=== PATIENT | female | born 1945 | race Caucasian/White ===

== ENCOUNTER → 2017-01-12 | Outpatient (CLI) | payer MEDICARE, OTHER ==
[~2017-01-12] MED LIST: AMOX500C2 PO; ATR20T; CARB200T6 PO; CEPH500C; HYDR-2997 PO; HYDR1TAB PO; LEVO750T6 PO; LORA0.5T34; METR500T PO; MTF500T; ROSI2TAB11; SITA1TAB6; VLS80C; ZLP10T
--- NOTE | 2017-01-12 13:16 | Diagnostic Imaging Report ---
PROCEDURE: MRI lumbar spine. TECHNIQUE: Multiplanar, multisequence MRI of the lumbar spine was performed without contrast. INDICATION: Lower back pain. COMPARISON: None. FINDINGS: For the purposes of this exam, last well-formed disc space is denoted the L5-S1 level. Evaluation of the static alignment demonstrates trace grade 1 anterolisthesis of L4 on L5. Otherwise, static alignment is maintained. There is no evidence of jumped facets. Vertebral body heights are maintained. There is no evidence of acute fracture. Marrow signal is unremarkable. There are mild multilevel degenerative changes consisting of intervertebral disc height loss with anterior and posterior disc bulges. Visualized portions of the distal cord are unremarkable. Conus terminates at approximately the L1-L2 level. No abnormal intrathecal filling defects are seen. Pre- and para-vertebral soft tissue structures are unremarkable. Axial images demonstrate the following: T12-L1: There is mild broad-based posterior disc bulge with focal left paracentric superimposed disc protrusion. As a result, there is mild narrowing of the spinal canal. Neural foramina are unremarkable. L1-L2: There is broad-based posterior disc bulge which results in mild narrowing of the spinal canal. Neural foramina are unremarkable. L2-L3: There is mild broad-based posterior disc bulge and bilateral ligamentum flavum laxity. There is minimal narrowing of the spinal canal and bilateral neural foramina. L3-L4: There is mild broad-based posterior disc bulge and bilateral ligamentum flavum laxity and facet arthropathy. As a result, there is moderate narrowing of the spinal canal and mild narrowing of the bilateral neural foramina. L4-L5: There is mild broad-based posterior disc bulge with bilateral facet arthropathy and ligamentum flavum laxity. As a result, there is mild narrowing of the spinal canal and bilateral neural foramina. L5-S1: There is broad-based posterior disc bulge. There is also focal extrusion of disc material extending superiorly posterior to the L5 vertebral body, midline. Despite this, however, there is only minimal narrowing of the spinal canal and mild narrowing of the bilateral neural foramina. IMPRESSION: 1. Multilevel degenerative changes of the lumbar spine, which appear greatest at the L3-L4 through L5-S1 levels as described above. 2. No acute fracture or dislocation. Dictated by: Dictated on workstation # [id number]
== END ==
LOC: RAD 11:32
PROVIDERS: ATTEND Internal Medicine
DX: M54.5 Low back pain (principal); M51.37 Other intervertebral disc degeneration, lumbosacral region
CPT/HCPCS: 72148

== ENCOUNTER 2017-03-06 06:47 | Emergency (ER) | payer MEDICARE, OTHER ==
[~2017-03-06] VITALS: Ht 154.9 cm; Wt 74.8 kg
[2017-03-06 07:45] LABS: BASOPHILS % (AUTO) 0 % (0-10); EOSINOPHILS # (AUTO) 0.2 10^3/uL (0.0-0.3); EOSINOPHILS % (AUTO) 4 % (0-10); LYMPHOCYTES % (AUTO) 52 % (12-44); MEAN CORPUSCULAR HEMOGLOBIN 30 PG (25-34); MEAN CORPUSCULAR HGB CONC 34 G/DL (32-36); MEAN CORPUSCULAR VOLUME 88 FL (80-99); MEAN PLATELET VOLUME 9.9 FL (7.4-10.4); MONOCYTES # (AUTO) 0.4 X 10^3 (0.0-1.0); MONOCYTES % (AUTO) 7 % (0-12); NEUTROPHILS # (AUTO) 2.2 X 10^3 (1.8-7.8); NEUTROPHILS % (AUTO) 37 % (42-75); PLATELET COUNT 226 10^3/uL (130-400); RED BLOOD COUNT 4.56 10^6/uL (4.35-5.85); RED CELL DISTRIBUTION WIDTH 12.2 % (10.0-14.5); WHITE BLOOD COUNT 5.8 10^3/uL (4.3-11.0)
[2017-03-06 07:53] LABS: BILIRUBIN,URINE NEGATIVE (NEGATIVE); KETONES,URINE NEGATIVE (NEGATIVE); NITRITE,URINE NEGATIVE (NEGATIVE); PH,URINE 6 (5-9); PROTEIN,URINE NEGATIVE (NEGATIVE); UROBILINOGEN,URINE NORMAL (NORMAL)
[2017-03-06 07:54] LABS: LEUKOCYTE ESTERASE ,URINE 1+ (NEGATIVE); WBC,URINE 0-2 /HPF
--- NOTE | 2017-03-06 07:55 | ED General ---
General Chief Complaint: Dizziness/Syncope Stated Complaint: DIZZY HEAD CONGESTION Nursing Triage Note: PT REPORTS SHE WOKE UP THIS AM WITH DIZZINESS AND REPORTS "MY EQUILIBRIUM IS OFF." Nursing Sepsis Screen: No Definite Risk Source of Information: Patient History of Present Illness Time Seen by Provider: 07:46 Initial Comments The patient is a 71-year-old white female who presents with complaints of dizziness and loss of balance. She reports that she awakened this morning with these symptoms. The she reports that it seems somewhat worse when she turns her head. She states that she had difficulty making it to the bathroom. She then decided to smile into the mirror to determine whether she might be having a stroke. She was observed to walk from her ER room to the bathroom and appeared unsteady and clinging to the handrail. Timing/Duration: 1-3 Hours Associated Systoms: Denies Symptoms Allergies and Home Medications Allergies Coded Allergies: Meperidine (Verified Allergy, Unknown, 07/25/06) Home Medications Amoxicillin 500 Mg Capsule, 1 EACH PO BID for 10 Days, Ref 0 Prescribed by: MILANA CALI MD on 08/29/0949 Carbamazepine 200 Mg Tablet, 200 MG PO BID, #30 Ref 0 Prescribed by: MILANA CALI MD on 08/29/0949 Cephalexin Monohydrate 500 Mg Capsule, (Reported) Hydrocodone Bit/Acetaminophen 1 Tab Tablet, 1 EACH PO Q 4 - 6 HRS PRN, #14 Ref 0 Prescribed by: MILANA CALI MD on 08/29/0949 Hydrocodone Bit/Acetaminophen 1 Each Tablet, 1-2 EACH PO Q4HR PRN, #12 Prescribed by: MADHAV GALDAMEZ on 01/27/132324 Levofloxacin 750 Mg Tablet, 750 MG PO DAILY for 7 Days Prescribed by: MADHAV GALDAMEZ on 01/27/135 Lorazepam 0.5 Mg Tablet, (Reported) Metformin Hcl 500 Mg Tablet, (Reported) Metformin Hcl 500 Mg Tablet, (Reported) Metronidazole 500 Mg Tab, 1 EACH PO QID for 7 Days Prescribed by: MADHAV GALDAMEZ on 01/27/132324 Sitagliptin Phos/Metformin Hcl 1 Each Tablet, (Reported) Valsartan 80 Mg Tablet, (Reported) Zolpidem Tartrate 10 Mg Tablet, (Reported) Constitutional: see HPI EENTM: no symptoms reported Respiratory: no symptoms reported Cardiovascular: no symptoms reported Gastrointestinal: no symptoms reported Genitourinary: no symptoms reported Musculoskeletal: no symptoms reported Skin: no symptoms reported Psychiatric/Neurological: No Symptoms Reported Hematologic/Lymphatic: No Symptoms Reported Immunological/Allergic: no symptoms reported Past Oitlwsg-Uhgpjq-Fajglu Hx Patient Social History Alcohol Use: Denies Use Recreational Drug Use: No Smoking Status: Former Smoker Type Used: Cigarettes 2nd Hand Smoke Exposure: No Recent Foreign Travel: No Contact w/Someone Who Travel: No Recent Infectious Disease Expo: No Surgeries HX Surgeries: Yes (CHOELECYSTECTOMY, HYSTERECTOMY) Respiratory Hx Respiratory Disorders: No Cardiovascular Cardiac Disorders: Hypertension Neurological Hx Neurological Disorders: No 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 Genitourinary Hx Genitourinary Disorders: No Gastrointestinal Gastrointestinal Disorders: Gastroesophageal Reflux Endocrine Endocrine Disorders: Diabetes, Non-Insulin dep HEENT HX ENT Disorders: No Blood Transfusions Hx Blood Disorders: No Physical Exam Vital Signs Vital Sign - Last 12Hours 03/06/17 07:11 Temp 96.5 Pulse 84 Resp 18 B/P (MAP) 185/93 Pulse Ox 97 Capillary Refill : Less Than 3 Seconds General Appearance: Mild Distress Eyes: Bilateral Eye Other (bilateral horizontal nystagmus) HEENT: Normal ENT Inspection Neck: Normal Inspection Respiratory: Chest Non Tender, Lungs Clear, Normal Breath Sounds, No Accessory Muscle Use, No Respiratory Distress Cardiovascular: Regular Rate, Rhythm, No Edema, No Gallop, No JVD, No Murmur, Normal Peripheral Pulses Gastrointestinal: Normal Bowel Sounds, No Organomegaly, No Pulsatile Mass, Non Tender, Soft Back: Normal Inspection, No CVA Tenderness, No Vertebral Tenderness Extremity: Normal Capillary Refill, Normal Inspection, Normal Range of Motion, Non Tender, No Calf Tenderness, No Pedal Edema Neurologic/Psychiatric: Alert, Oriented x3, No Motor/Sensory Deficits, Normal Mood/Affect Skin: Normal Color, Warm/Dry Lymphatic: No Adenopathy Comments Finger to examiner's finger and finger to nose were normal. Rapid alternating finger to thumb movements were normal as well. Progress/Results/Core Measures Results/Orders Lab Results Laboratory Tests Test 03/06/17 07:35 Range/Units White Blood Count 5.8 4.3-11.0 10^3/uL Red Blood Count 4.56 4.35-5.85 10^6/uL Hemoglobin 13.6 11.5-16.0 G/DL Hematocrit 40 35-52 % Mean Corpuscular Volume 88 80-99 FL Mean Corpuscular Hemoglobin 30 25-34 PG Mean Corpuscular Hemoglobin Concent 34 32-36 G/DL Red Cell Distribution Width 12.2 10.0-14.5 % Platelet Count 226 130-400 10^3/uL Mean Platelet Volume 9.9 7.4-10.4 FL Neutrophils (%) (Auto) 37 L 42-75 % Lymphocytes (%) (Auto) 52 H 12-44 % Monocytes (%) (Auto) 7 0-12 % Eosinophils (%) (Auto) 4 0-10 % Basophils (%) (Auto) 0 0-10 % Neutrophils # (Auto) 2.2 1.8-7.8 X 10^3 Lymphocytes # (Auto) 3.0 1.0-4.0 X 10^3 Monocytes # (Auto) 0.4 0.0-1.0 X 10^3 Eosinophils # (Auto) 0.2 0.0-0.3 10^3/uL Basophils # (Auto) 0.0 0.0-0.1 10^3/uL Urine Color YELLOW Urine Clarity CLEAR Urine pH 6 5-9 Urine Specific [place] 1.015 L 1.016-1.022 Urine Protein NEGATIVE NEGATIVE Urine Glucose (UA) NEGATIVE NEGATIVE Urine Ketones NEGATIVE NEGATIVE Urine Nitrite NEGATIVE NEGATIVE Urine Bilirubin NEGATIVE NEGATIVE Urine Urobilinogen NORMAL NORMAL MG/DL Urine Leukocyte Esterase 1+ H NEGATIVE Urine RBC (Auto) NEGATIVE NEGATIVE Urine RBC NONE /HPF Urine WBC 0-2 /HPF Urine Squamous Epithelial Cells 10-25 H /HPF Urine Crystals NONE /LPF Urine Bacteria MODERATE H /HPF Urine Casts NONE /LPF Urine Mucus NEGATIVE /LPF Urine Culture Indicated NO Sodium Level 138 135-145 MMOL/L Potassium Level 3.8 3.6-5.0 MMOL/L Chloride Level 104 98-107 MMOL/L Carbon Dioxide Level 20 L 21-32 MMOL/L Anion Gap 14 5-14 MMOL/L Blood Urea Nitrogen 17 7-18 MG/DL Creatinine 0.98 0.60-1.30 MG/DL Estimat Glomerular Filtration Rate 56 BUN/Creatinine Ratio 17 Glucose Level 154 H 70-105 MG/DL Calcium Level 9.3 8.5-10.1 MG/DL Total Bilirubin 0.4 0.1-1.0 MG/DL Aspartate Amino Transf (AST/SGOT) 47 H 5-34 U/L Alanine Aminotransferase (ALT/SGPT) 60 H 0-55 U/L Alkaline Phosphatase 71 40-136 U/L Total Protein 6.8 6.4-8.2 GM/DL Albumin 4.1 3.2-4.5 GM/DL My Orders Orders - PAMELA BERG MD Cbc With Automated Diff (03/06/17 07:15) Comprehensive Metabolic Panel (03/06/17 07:15) Ua Culture If Indicated (03/06/17 07:15) Meclizine Tablet (Antivert Tablet) (03/06/17 08:15) Medications Given in ED Current Medications Medications Dose Ordered Sig/Yusuf Route Start Time Stop Time Status Last Admin Dose Admin Meclizine HCl 25 mg ONCE ONCE PO 03/06/17 08:15 03/06/17 08:17 DC 03/06/17 08:19 25 MG Vital Signs/I&O Vital Sign - Last 12Hours 03/06/17 07:11 Temp 96.5 Pulse 84 Resp 18 B/P (MAP) 185/93 Pulse Ox 97 Blood Pressure Mean: 123 Departure Impression Impression: Primary Impression: Vertigo Disposition: 01 HOME, SELF-CARE Condition: Stable/Unchanged Departure-Patient Inst. Decision time for Depature: 08:32 Referrals: ALVERTO COHEN DO (PCP/Family) Primary Care Physician Patient Instructions: Vertigo (a Type of Dizziness) (DC) Add. Discharge Instructions: All discharge instructions reviewed with patient and/or family. Voiced understanding. Take meclizine 25 mg 3-4 times daily for the next 3 days. It may cause you to feel drowsy. If vertigo is resolved you may reduce the number of pills by one daily until you reach 0. If further problems see your provider Scripts Meclizine HCl (Meclizine HCl) 25 Mg Tablet 25 MG PO 4 times a day, #20 TAB Prov: PAMELA BERG MD 03/06/17 PAMELA BERG MD Mar 06, 2017 07:55
[2017-03-06 08:03] LABS: ALBUMIN 4.1 GM/DL (3.2-4.5); BILIRUBIN,TOTAL 0.4 MG/DL (0.1-1.0); CALCIUM 9.3 MG/DL (8.5-10.1); CREATININE SERUM 0.98 MG/DL (0.60-1.30); POTASSIUM 3.8 MMOL/L (3.6-5.0); TOTAL PROTEIN 6.8 GM/DL (6.4-8.2)
[2017-03-06] MEDS ORDERED: MECLIZINE 25 MG (ANTIVERT) TAB PO ONE (08:15)
[2017-03-06] MEDS ORDERED: MECL-106 PO (08:35)
[2017-03-06 09:18] VITALS: BP 179/80
== END 2017-03-06 09:18 | disposition home or self-care (01) ==
LOC: EDUNIT# 06:47 → ER 06:50
DX: R42 Dizziness and giddiness (principal); E11.9 Type 2 diabetes mellitus without complications; K21.9 Gastro-esophageal reflux disease without esophagitis; I10 Essential (primary) hypertension; Z87.891 Personal history of nicotine dependence; Z90.710 Acquired absence of both cervix and uterus; Z90.49 Acquired absence of other specified parts of digestive tract; Z79.84 Long term (current) use of oral hypoglycemic drugs
CPT/HCPCS: 36415; 80053; 81000; 85025; 99283

== ENCOUNTER 2018-01-12 19:29 | Emergency (ER) | payer MEDICARE, OTHER ==
[~2018-01-12] VITALS: Ht 154.9 cm; Wt 79.4 kg
[~2018-01-12 19:29] MED LIST changes: +MECL-106 PO
--- OUTSIDE RECORDS SUMMARY | 2018-01-12 19:36 | XMS REPORT | Continuity of Care Document ---
Author Author [facility] Organization [facility] Address Unknown Phone Unavailable Allergies Active Description Code Type Severity Reaction Onset Reported/Identified Relationship to Patient Clinical Status Yes meperidine [id number] Drug Allergy Unknown N/A 07/25/2006 Medications There is no data. Problems Date Dx Coded Attending Type Code Diagnosis Diagnosed By 01/27/2013 MADHAV GALDAMEZ MD Ot 562.11 DIVERTICULITIS COLON (W/O MENT OF HEMORR 01/27/2013 MADHAV GALDAMEZ MD Ot 789.00 ABDOMINAL PAIN, UNSPECIFIED SITE 01/11/2015 MARIA ELENA COHEN METAL WORKER Ot V76.12 02/06/2015 MARIA ELENA COHEN METAL WORKER Ot 240.9 02/06/2015 MARIA ELENA COHEN METAL WORKER Ot 250.00 02/06/2015 MARIA ELENA COHEN METAL WORKER Ot 780.79 02/06/2015 MARIA ELENA COHEN METAL WORKER Ot V58.69 02/25/2015 MARIA ELENA COHEN METAL WORKER Ot 240.9 02/25/2015 MARIA ELENA COHEN METAL WORKER Ot 250.00 02/25/2015 MARIA ELENA COHEN METAL WORKER Ot 780.79 02/25/2015 MARIA ELENA COHEN METAL WORKER Ot V58.69 07/13/2016 ALVERTO COHEN DO Ot Z12.31 ENCNTR SCREEN MAMMOGRAM FOR MALIGNANT NE 07/14/2016 ALVERTO COHEN DO Ot Z12.31 ENCNTR SCREEN MAMMOGRAM FOR MALIGNANT NE 08/03/2016 ALVERTO COHEN DO Ot Z12.31 ENCNTR SCREEN MAMMOGRAM FOR MALIGNANT NE 01/14/2017 ALVERTO COHEN DO Ot M51.37 OTHER INTERVERTEBRAL DISC DEGENERATION, 01/14/2017 ALVERTO COHEN DO Ot M54.5 LOW BACK PAIN 02/01/2017 ALVERTO COHEN DO, Ot M51.37 OTHER INTERVERTEBRAL DISC DEGENERATION, 02/01/2017 ALVERTO COHEN DO Ot M54.5 LOW BACK PAIN 03/06/2017 PAMELA BERG MD Ot E11.9 TYPE 2 DIABETES MELLITUS WITHOUT COMPLIC 03/06/2017 PAMELA BERG MD Ot I10 ESSENTIAL (PRIMARY) HYPERTENSION 03/06/2017 PAMELA BERG MD Ot K21.9 GASTRO-ESOPHAGEAL REFLUX DISEASE WITHOUT 03/06/2017 PAMELA BERG MD Ot R42 DIZZINESS AND GIDDINESS 03/06/2017 PAMELA BERG MD Ot Z79.84 HALF-WAY (CURRENT) USE OF ORAL HYPOGLYC 03/06/2017 PAMELA BERG MD Ot Z87.891 PERSONAL HISTORY OF NICOTINE DEPENDENCE 03/06/2017 PAMELA BERG MD Ot Z90.49 ACQUIRED ABSENCE OF OTHER SPECIFIED PART 03/06/2017 PAMELA BERG MD Ot Z90.710 ACQUIRED ABSENCE OF BOTH CERVIX AND UTER 03/06/2017 MARIA ELENA COHEN METAL WORKER Ot 562.10 DIVERTICULOSIS COLON (W/O MENT OF HEMORR 03/06/2017 MARIA ELENA COHEN METAL WORKER Ot 592.0 CALCULUS OF KIDNEY 03/06/2017 MARIA ELENA COHEN METAL WORKER Ot 790.5 ABN SERUM ENZY LEVEL NEC 03/06/2017 MARIA ELENA COHEN METAL WORKER Ot V76.12 OTH SCREEN MAMMO-MALIGN NEOPLASM OF SABRINA 03/06/2017 MARIA ELENA COHEN METAL WORKER Ot V76.12 OTH SCREEN MAMMO-MALIGN NEOPLASM OF [place]RINA 03/06/2017 MARIA ELENA COHEN METAL WORKER Ot 240.9 GOITER NOS 03/06/2017 MARIA ELENA COHEN METAL WORKER Ot 250.00 DIAB BRENDA WO COMPL, TYPE II OR UNSPEC TY 03/06/2017 MARIA ELENA COHEN METAL WORKER Ot 780.79 OTH MALAISE FATIGUE 03/06/2017 MARIA ELENA COHEN METAL WORKER Ot V58.69 OTH MED,LT,CURRENT USE 03/06/2017 ALVERTO COHEN DO Ot Z12.31 ENCNTR SCREEN MAMMOGRAM FOR MALIGNANT NE 03/06/2017 ALVERTO COHEN DO Ot M51.37 OTHER INTERVERTEBRAL DISC DEGENERATION, 03/06/2017 ALVERTO COHEN DO Ot M54.5 LOW BACK PAIN 03/08/2017 PAMELA BERG MD Ot R42 DIZZINESS AND GIDDINESS 03/08/2017 PAMELA BERG MD Ot E11.9 TYPE 2 DIABETES MELLITUS WITHOUT COMPLIC 03/08/2017 PAMELA BERG MD Ot I10 ESSENTIAL (PRIMARY) HYPERTENSION 03/08/2017 PAMELA BERG MD Ot K21.9 GASTRO-ESOPHAGEAL REFLUX DISEASE WITHOUT 03/08/2017 PAMELA BERG MD Ot R42 DIZZINESS AND GIDDINESS 03/08/2017 PAMELA BERG MD Ot Z79.84 HALF-WAY (CURRENT) USE OF ORAL HYPOGLYC 03/08/2017 PAMELA BERG MD Ot Z87.891 PERSONAL HISTORY OF NICOTINE DEPENDENCE 03/08/2017 PAMELA BERG MD Ot Z90.49 ACQUIRED ABSENCE OF OTHER SPECIFIED PART 03/08/2017 PAMELA BERG MD Ot Z90.710 ACQUIRED ABSENCE OF BOTH CERVIX AND UTER 03/12/2017 PAMELA BERG MD Ot E11.9 TYPE 2 DIABETES MELLITUS WITHOUT COMPLIC 03/12/2017 PAMELA BERG MD Ot I10 ESSENTIAL (PRIMARY) HYPERTENSION 03/12/2017 PAMELA BERG MD Ot K21.9 GASTRO-ESOPHAGEAL REFLUX DISEASE WITHOUT 03/12/2017 PAMELA BERG MD Ot R42 DIZZINESS AND GIDDINESS 03/12/2017 PAMELA BERG MD Ot Z79.84 HALF-WAY (CURRENT) USE OF ORAL HYPOGLYC 03/12/2017 PAMELA BERG MD Ot Z87.891 PERSONAL HISTORY OF NICOTINE DEPENDENCE 03/12/2017 PAMELA BERG MD Ot Z90.49 ACQUIRED ABSENCE OF OTHER SPECIFIED PART 03/12/2017 PAMELA BERG MD Ot Z90.710 ACQUIRED ABSENCE OF BOTH CERVIX AND UTER Procedures There is no data. Results Test Result Range Complete blood count (CBC) with automated white blood cell (WBC) differential - 03/06/17 07:35 Blood leukocytes automated count (number/volume) 5.8 10*3/uL 4.3-11.0 Blood erythrocytes automated count (number/volume) 4.56 10*6/uL 4.35-5.85 Venous blood hemoglobin measurement (mass/volume) 13.6 g/dL 11.5-16.0 Blood hematocrit (volume fraction) 40 % 35-52 Automated erythrocyte mean corpuscular volume 88 [foz_us] 80-99 Automated erythrocyte mean corpuscular hemoglobin (mass per erythrocyte) 30 pg 25-34 Automated erythrocyte mean corpuscular hemoglobin concentration measurement ( mass/volume) 34 g/dL 32-36 Automated erythrocyte distribution width ratio 12.2 % 10.0-14.5 Automated blood platelet count (count/volume) 226 10*3/uL 130-400 Automated blood platelet mean volume measurement 9.9 [foz_us] 7.4-10.4 Automated blood neutrophils/100 leukocytes 37 % 42-75 Automated blood lymphocytes/100 leukocytes 52 % 12-44 Blood monocytes/100 leukocytes 7 % 0-12 Automated blood eosinophils/100 leukocytes 4 % 0-10 Automated blood basophils/100 leukocytes 0 % 0-10 Blood neutrophils automated count (number/volume) 2.2 10*3 1.8-7.8 Blood lymphocytes automated count (number/volume) 3.0 10*3 1.0-4.0 Blood monocytes automated count (number/volume) 0.4 10*3 0.0-1.0 Automated eosinophil count 0.2 10*3/uL 0.0-0.3 Automated blood basophil count (count/volume) 0.0 10*3/uL 0.0-0.1 Complete urinalysis with reflex to culture - 03/06/17 07:35 Urine color determination YELLOW NRG Urine clarity determination CLEAR NRG Urine pH measurement by test strip 6 5-9 Specific gravity of urine by test strip 1.015 1.016- 1.022 Urine protein assay by test strip, semi-quantitative NEGATIVE NEGATIVE Urine glucose detection by automated test strip NEGATIVE NEGATIVE Erythrocytes detection in urine sediment by light microscopy NEGATIVE NEGATIVE Urine ketones detection by automated test strip NEGATIVE NEGATIVE Urine nitrite detection by test strip NEGATIVE NEGATIVE Urine total bilirubin detection by test strip NEGATIVE NEGATIVE Urine urobilinogen measurement by automated test strip (mass/volume) NORMAL NORMAL Urine leukocyte esterase detection by dipstick 1+ NEGATIVE Automated urine sediment erythrocyte count by microscopy (number/high power field) NONE NRG Automated urine sediment leukocyte count by microscopy (number/high power field ) [HPF] NRG Bacteria detection in urine sediment by light microscopy MODERATE NRG Squamous epithelial cells detection in urine sediment by light microscopy 10-25 NRG Crystals detection in urine sediment by light microscopy NONE NRG Casts detection in urine sediment by light microscopy NONE NRG Mucus detection in urine sediment by light microscopy NEGATIVE NRG Complete urinalysis with reflex to culture NO NRG Comprehensive metabolic panel - 03/06/17 07:35 Serum or plasma sodium measurement (moles/volume) 138 mmol/L 135-145 Serum or plasma potassium measurement (moles/volume) 3.8 mmol/L 3.6-5.0 Serum or plasma chloride measurement (moles/volume) 104 mmol/L 98-107 Carbon dioxide 20 mmol/L 21-32 Serum or plasma anion gap determination (moles/volume) 14 mmol/L 5-14 Serum or plasma urea nitrogen measurement (mass/volume) 17 mg/dL 7-18 Serum or plasma creatinine measurement (mass/volume) 0.98 mg/dL 0.60-1.30 Serum or plasma urea nitrogen/creatinine mass ratio 17 NRG Serum or plasma creatinine measurement with calculation of estimated glomerular filtration rate 56 NRG Serum or plasma glucose measurement (mass/volume) 154 mg/dL 70-105 Serum or plasma calcium measurement (mass/volume) 9.3 mg/dL 8.5-10.1 Serum or plasma total bilirubin measurement (mass/volume) 0.4 mg/dL 0.1-1.0 Serum or plasma alkaline phosphatase measurement (enzymatic activity/volume) 71 U/L 40-136 Serum or plasma aspartate aminotransferase measurement (enzymatic activity/ volume) 47 U/L 5-34 Serum or plasma alanine aminotransferase measurement (enzymatic activity/volume ) 60 U/L 0-55 Serum or plasma protein measurement (mass/volume) 6.8 g/dL 6.4-8.2 Serum or plasma albumin measurement (mass/volume) 4.1 g/dL 3.2-4.5 Encounters ACCT No. Visit Date/Time Discharge Status Pt. Type Provider Facility Loc./Unit Complaint [id number] 03/06/2017 06:50:00 03/06/2017 09:18:00 DIS Emergency MORENA DONAHUE, PAMELA Salazar [facility] ER DIZZY HEAD CONGESTION [id number] 01/12/2017 11:32:00 01/12/2017 23:59:59 CLS Outpatient ALVERTO COHEN DO [facility] RAD M54.5 [id number] 07/13/2016 10:16:00 07/13/2016 23:59:59 CLS Outpatient ALVERTO COHEN DO [facility] RAD SCREENING [id number] 01/02/2015 11:30:00 01/02/2015 23:59:59 CLS Outpatient MARIA ELENA COHEN METAL WORKER [facility] RAD THYROIDMEGALY, FATIGUE,DM [id number] 11/29/2014 10:51:00 11/29/2014 23:59:59 CLS Outpatient MARIA ELENA COHEN METAL WORKER [facility] RAD SCREENING [id number] 08/24/2013 13:42:00 08/24/2013 23:59:59 CLS Outpatient MARIA ELENA COHEN METAL WORK[employer] [facility] RAD ROUTINE,ABD PAIN [id number] 01/27/2013 21:49:00 01/27/2013 23:45:00 DIS Emergency MADHAV GALDAMEZ MD [facility] ER FEVER, L SIDE PAIN
[2018-01-12] MEDS ORDERED: NS IV 1000 ML 1,000 ML IV ONE (20:15)
[2018-01-12 20:16] LABS: BASOPHILS % (AUTO) 0 % (0-10); EOSINOPHILS # (AUTO) 0.2 10^3/uL (0.0-0.3); EOSINOPHILS % (AUTO) 3 % (0-10); HEMATOCRIT 38 % (35-52); LYMPHOCYTES # (AUTO) 0.9 X 10^3 (1.0-4.0); LYMPHOCYTES % (AUTO) 17 % (12-44); MEAN CORPUSCULAR HEMOGLOBIN 30 PG (25-34); MEAN CORPUSCULAR HGB CONC 34 G/DL (32-36); MEAN CORPUSCULAR VOLUME 88 FL (80-99); MEAN PLATELET VOLUME 10.3 FL (7.4-10.4); MONOCYTES # (AUTO) 0.3 X 10^3 (0.0-1.0); MONOCYTES % (AUTO) 5 % (0-12); NEUTROPHILS # (AUTO) 4.1 X 10^3 (1.8-7.8); NEUTROPHILS % (AUTO) 74 % (42-75); PLATELET COUNT 226 10^3/uL (130-400); RED BLOOD COUNT 4.31 10^6/uL (4.35-5.85); RED CELL DISTRIBUTION WIDTH 12.8 % (10.0-14.5); WHITE BLOOD COUNT 5.6 10^3/uL (4.3-11.0)
--- NOTE | 2018-01-12 20:16 | ED General ---
General Chief Complaint: Bite-Animal/Human/Insect Stated Complaint: TICK BITE/NAUSEA/CHILLS Nursing Triage Note: pt states she was bit by a tick on L thigh Tuesday. began experiencing symptoms today. pt c/o n/v/d, chills, fever, vomiting. Nursing Sepsis Screen: Possible Sepsis Risk (CELINA CESAR STUDENT) History of Present Illness Date Seen by Provider: January 12, 2018 Time Seen by Provider: 20:11 Initial Comments Patient to ER with complaints of nausea, fevers, dizziness, and a headache that started around 10 today. Patient reports that 4 days ago she was bit by a tick her lower groin area, when she found that she was unsure how long it had been imbedded but removed it without difficulty. She she called Dr. Whitehead's office and reported the tick bite and he gave her 2 doses doses of Cipro. She does report 2 bouts of diarrhea yesterday but since has stopped. Timing/Duration: 4-6 Hours Severity: Mild Associated Systoms: No Chest Pain, No Cough, No Diaphoresis; Fever/Chills, Headaches, Nausea/Vomiting (CELINA CESAR STUDENT) Timing/Duration: 12-24 Hours (RADHA ALLEN MD) Allergies and Home Medications Allergies Coded Allergies: Meperidine (Verified Allergy, Unknown, 07/25/06) Home Medications Amoxicillin 500 Mg Capsule, 1 EACH PO BID Prescribed by: MILANA CALI MD on 08/29/09548 Carbamazepine 200 Mg Tablet, 200 MG PO BID Prescribed by: MILANA CALI MD on 08/29/0949 Hydrocodone Bit/Acetaminophen 1 Tab Tablet, 1 EACH PO Q 4 - 6 HRS PRN Prescribed by: MILANA CALI MD on 08/29/0949 Hydrocodone Bit/Acetaminophen 1 Each Tablet, 1-2 EACH PO Q4HR PRN Prescribed by: MADHAV GALDAMEZ on 01/27/132324 Levofloxacin 750 Mg Tablet, 750 MG PO DAILY Prescribed by: MADHAV GALDAMEZ on 01/27/132324 Meclizine HCl 25 Mg Tablet, 25 MG PO 4 times a day Prescribed by: PAMELA BERG on 03/06/17 0835 Metronidazole 500 Mg Tab, 1 EACH PO QID Prescribed by: MADHAV GALDAMEZ on 01/27/132324 Patient Home Medication List Home Medication List Reviewed: Yes (CELINA CESAR STUDENT) Review of Systems Constitutional: see HPI, chills, fever, malaise EENTM: see HPI (headache), other Respiratory: no symptoms reported Cardiovascular: no symptoms reported Gastrointestinal: see HPI, nausea, vomiting Genitourinary: no symptoms reported Musculoskeletal: no symptoms reported Skin: other (tick bite for left lower groin) Psychiatric/Neurological: See HPI Hematologic/Lymphatic: See HPI Immunological/Allergic: see HPI (CELINA CESAR STUDENT) Gastrointestinal: No hematemesis, No vomiting (RADHA ALLEN MD) All Other Systems Reviewed Negative Unless Noted: Yes (RADHA ALLEN MD) Past Okjpeyw-Puczzl-Wtcino Hx Past Med/Social Hx: Reviewed Nursing Past Med/Soc Hx (RADHA ALLEN MD) Patient Social History Alcohol Use: Denies Use Recreational Drug Use: No Smoking Status: Former Smoker Type Used: Cigarettes Former Smoker, Quit: Feb 27, 1975 2nd Hand Smoke Exposure: No Recent Foreign Travel: No Contact w/Someone Who Travel: No Recent Infectious Disease Expo: No (CELINA CESAR) Past Medical History Surgeries: Yes (CHOELECYSTECTOMY, HYSTERECTOMY) Respiratory: No Cardiac: Yes Hypertension Neurological: No [employer] History: Hysterectomy Genitourinary: No Gastrointestinal: Yes Gastroesophageal Reflux Musculoskeletal: No Endocrine: Yes Diabetes, Non-Insulin dep HEENT: No Cancer: No Psychosocial: No Integumentary: No Blood Disorders: No (CELINA CESAR STUDENT) Family Medical History Reviewed Nursing Family Hx (RADHA ALLEN MD) No Pertinent Family Hx (RADHA ALLEN MD) Physical Exam Vital Signs Vital Signs - First Documented 01/12/18 19:35 Temp 97.6 Pulse 107 Resp 16 B/P (MAP) 193/106 (135) O2 Delivery Room Air (RADHA ALLEN MD) Vital Signs Capillary Refill : Less Than 3 Seconds (CELINA CESAR STUDENT) General Appearance: No Apparent Distress, WD/WN Eyes: Bilateral Eye Normal Inspection HEENT: PERRL/EOMI, TMs Normal, Normal ENT Inspection, Pharynx Normal Neck: Full Range of Motion, Normal Inspection, Non Tender, Supple Respiratory: Chest Non Tender, Lungs Clear, Normal Breath Sounds, No Accessory Muscle Use, No Respiratory Distress Cardiovascular: Regular Rate, Rhythm, No Edema, No Gallop, No JVD, No Murmur, Normal Peripheral Pulses Gastrointestinal: Normal Bowel Sounds, No Organomegaly, No Pulsatile Mass, Soft , Tenderness Rectal: Deferred Back: Normal Inspection, No CVA Tenderness, No Vertebral Tenderness Extremity: Normal Capillary Refill, Normal Inspection, Normal Range of Motion, Non Tender, No Calf Tenderness Neurologic/Psychiatric: Alert, Oriented x3, Normal Mood/Affect Skin: Normal Color, Warm/Dry, Other (Insect bite to the left groin area, a well -formed scab is present) Lymphatic: No Adenopathy (CELINA CESAR STUDENT) Respiratory: Lungs Clear, Normal Breath Sounds Cardiovascular: No Murmur, Tachycardia Gastrointestinal: Non Tender, Soft Skin: No Rash; Other (Insect bite to the left groin area, a well-formed scab is present) (RADHA ALLEN MD) Progress/Results/Core Measures Suspected Sepsis Recent Fever Within 48 Hours: Yes Infection Criteria Present: Suspected New Infection New/Unexplained Altered Menta: No Sepsis Screen: Possible Sepsis Risk SIRS Temperature:97.6 Pulse: 107 Respiratory Rate: 16 Laboratory Tests 01/12/18 19:45: White Blood Count 5.6 Blood Pressure 193 /106 Mean: 135 Laboratory Tests 01/12/18 19:45: Creatinine 1.14, Platelet Count 226, Total Bilirubin 0.4 (CELINA CESAR STUDENT) Results/Orders Lab Results Laboratory Tests Test 01/12/18 19:45 01/12/18 20:21 Range/Units White Blood Count 5.6 4.3-11.0 10^3/uL Red Blood Count 4.31 L 4.35-5.85 10^6/uL Hemoglobin 13.0 11.5-16.0 G/DL Hematocrit 38 35-52 % Mean Corpuscular Volume 88 80-99 FL Mean Corpuscular Hemoglobin 30 25-34 PG Mean Corpuscular Hemoglobin Concent 34 32-36 G/DL Red Cell Distribution Width 12.8 10.0-14.5 % Platelet Count 226 130-400 10^3/uL Mean Platelet Volume 10.3 7.4-10.4 FL Neutrophils (%) (Auto) 74 42-75 % Lymphocytes (%) (Auto) 17 12-44 % Monocytes (%) (Auto) 5 0-12 % Eosinophils (%) (Auto) 3 0-10 % Basophils (%) (Auto) 0 0-10 % Neutrophils # (Auto) 4.1 1.8-7.8 X 10^3 Lymphocytes # (Auto) 0.9 L 1.0-4.0 X 10^3 Monocytes # (Auto) 0.3 0.0-1.0 X 10^3 Eosinophils # (Auto) 0.2 0.0-0.3 10^3/uL Basophils # (Auto) 0.0 0.0-0.1 10^3/uL Sodium Level 138 135-145 MMOL/L Potassium Level 4.7 3.6-5.0 MMOL/L Chloride Level 105 98-107 MMOL/L Carbon Dioxide Level 20 L 21-32 MMOL/L Anion Gap 13 5-14 MMOL/L Blood Urea Nitrogen 19 H 7-18 MG/DL Creatinine 1.14 0.60-1.30 MG/DL Estimat Glomerular Filtration Rate 47 BUN/Creatinine Ratio 17 Glucose Level 114 H 70-105 MG/DL Calcium Level 9.6 8.5-10.1 MG/DL Total Bilirubin 0.4 0.1-1.0 MG/DL Aspartate Amino Transf (AST/SGOT) 30 5-34 U/L Alanine Aminotransferase (ALT/SGPT) 37 0-55 U/L Alkaline Phosphatase 60 40-136 U/L C-Reactive Protein High Sensitivity 1.29 H 0.00-0.50 MG/DL Total Protein 7.2 6.4-8.2 GM/DL Albumin 4.3 3.2-4.5 GM/DL Urine Color YELLOW Urine Clarity CLEAR Urine pH 5 5-9 Urine Specific [place] 1.010 L 1.016-1.022 Urine Protein 1+ H NEGATIVE Urine Glucose (UA) 4+ H NEGATIVE Urine Ketones 2+ H NEGATIVE Urine Nitrite NEGATIVE NEGATIVE Urine Bilirubin NEGATIVE NEGATIVE Urine Urobilinogen NORMAL NORMAL MG/DL Urine Leukocyte Esterase NEGATIVE NEGATIVE Urine RBC (Auto) NEGATIVE NEGATIVE Urine RBC NONE /HPF Urine WBC NONE /HPF Urine Squamous Epithelial Cells 10-25 H /HPF Urine Crystals NONE /LPF Urine Bacteria NONE /HPF Urine Casts NONE /LPF Urine Mucus NEGATIVE /LPF Urine Culture Indicated NO (RADHA ALLEN MD) My Orders Orders - RADHA ALLEN MD Ondansetron Injection (Zofran Injectio (01/12/18 20:15) Ns Iv 1000 Ml (Sodium Chloride 0.9%) (01/12/18 20:15) Cbc With Automated Diff (01/12/18 20:05) Tick Panel With Lyme Eia (01/12/18 20:05) Comprehensive Metabolic Panel (01/12/18 20:05) Hs C Reactive Protein (01/12/18 20:05) Iv Heplock-Insert (Order) (01/12/18 20:05) Ua Culture If Indicated (01/12/18 20:05) Ketorolac Injection (Toradol Injection) (01/12/18 20:19) Acetaminophen Tablet (Tylenol Tablet) (01/12/18 21:15) (RADHA ALLEN MD) Medications Given in ED Current Medications Medications Dose Ordered Sig/Yusuf Route Start Time Stop Time Status Last Admin Dose Admin Acetaminophen 1,000 mg ONCE ONCE PO 01/12/18 21:15 01/12/18 21:16 DC 01/12/18 21:21 1,000 MG Sodium Chloride 1,000 ml @ 0 mls/hr Q0M ONCE IV 01/12/18 20:15 01/12/18 20:16 DC 01/12/18 20:22 1,000 MLS/HR (RADHA ALLEN MD) Vital Signs/I&O 01/12/18 19:35 Temp 97.6 Pulse 107 Resp 16 B/P (MAP) 193/106 (135) O2 Delivery Room Air (RADHA ALLEN MD) Vital Signs/I&O Capillary Refill : Less Than 3 Seconds (CELINA CESAR STUDENT) Blood Pressure Mean: 135 Progress Note : Progress Note I have seen and evaluated the patient and agree with above except as indicated. Have directed the plan of care. Patient is here with report of nausea without vomiting today and overall not feeling well. She had tick bite 4 days ago and was placed on ciprofloxacin 500 mg twice daily for 1 day only for this. Does have history of tick bites in the past and had [facility] disease confirmed by [facility] per patient history. She did call her provider who did give her the 1 day of ciprofloxacin. She has completed that. Denies blood in her vomit or stool. We will check basic labs as well as a UA. Normal saline 1 L bolus ordered. Zofran 4 mg IV ordered but patient refused. Tick panel has been ordered. Monitor patient. 2149: Labs reviewed. Patient much better after meds. Discharged home with return precautions. Patient verbalize understanding instructions and agreement with plan. (RADHA ALLEN MD) Departure Impression Primary Impression: Tick bite Qualified Codes: W57.XXXA - Bitten or stung by nonvenomous insect and other nonvenomous arthropods, initial encounter Additional Impressions: Head ache Qualified Codes: R51 - Headache Dehydration Disposition: HOME, SELF-CARE Condition: Stable/Unchanged Departure-Patient Inst. Decision time for Depature: 21:48 (CELINA CESAR STUDENT) Referrals: ALVERTO WHITEHEAD DO (PCP/Family) Primary Care Physician Patient Instructions: Headache, Adult, Insect Bites and Stings (DC) Add. Discharge Instructions: Increase your oral fluid intake over the next few days, you may take Tylenol and ibuprofen as needed for pain. Return back to the emergency room for increased pain, nausea, vomiting, shortness of breath, chest pain or any other concerns as needed. Follow-up with your doctor in 1 week, call tomorrow for appointment time. All discharge instructions reviewed with patient and/or family. Voiced understanding. CELINA CESAR STUDENT January 12, 2018 20:16 RADHA ALLEN MD January 12, 2018 20:46
[2018-01-12] MEDS ORDERED: KETOROLAC 30 MG/ML VIAL IVP STA (20:19)
[2018-01-12] MEDS: ONDANSETRON 4 MG/2 ML (SDV) Z0FRAN IVP ONE (20:20)
[2018-01-12 20:29] LABS: ALBUMIN 4.3 GM/DL (3.2-4.5); BILIRUBIN,TOTAL 0.4 MG/DL (0.1-1.0); CALCIUM 9.6 MG/DL (8.5-10.1); CREATININE SERUM 1.14 MG/DL (0.60-1.30); POTASSIUM 4.7 MMOL/L (3.6-5.0); TOTAL PROTEIN 7.2 GM/DL (6.4-8.2)
[2018-01-12 20:30] LABS: BILIRUBIN,URINE NEGATIVE (NEGATIVE); CLARITY,URINE CLEAR; COLOR,URINE YELLOW; GLUCOSE, URINE (UA) 4+ (NEGATIVE); KETONES,URINE 2+ (NEGATIVE); LEUKOCYTE ESTERASE ,URINE NEGATIVE (NEGATIVE); NITRITE,URINE NEGATIVE (NEGATIVE); PH,URINE 5 (5-9); PROTEIN,URINE 1+ (NEGATIVE); UROBILINOGEN,URINE NORMAL (NORMAL)
[2018-01-12] MEDS ORDERED: ACETAMINOPHEN 500 MG TAB (TYLENOL) PO ONE (21:15)
[2018-01-12 21:58] VITALS: BP 164/76
== END 2018-01-12 21:58 | disposition home or self-care (01) ==
LOC: EDUNIT# 19:29 → ER 19:32
DX: S30.861A Insect bite (nonvenomous) of abdominal wall, initial encounter (principal); R51 Headache; E86.0 Dehydration; I10 Essential (primary) hypertension; K21.9 Gastro-esophageal reflux disease without esophagitis; E11.9 Type 2 diabetes mellitus without complications; Z88.8 Allergy status to other drugs, medicaments and biological substances; Z87.891 Personal history of nicotine dependence; Z90.49 Acquired absence of other specified parts of digestive tract; Z90.710 Acquired absence of both cervix and uterus; W57.XXXA Bitten or stung by nonvenomous insect and other nonvenomous arthropods, initial encounter
CPT/HCPCS: 36415; 80053; 81000; 85025; 86141; 86618; 86666; 86668; 86757; 96361; 96374

== ENCOUNTER 2018-08-05 12:14 | Inpatient (IN) | payer MEDICARE, OTHER ==
[~2018-08-05] VITALS: Ht 152.4 cm; Wt 0.5 kg
--- OUTSIDE RECORDS SUMMARY | 2018-08-05 12:27 | XMS REPORT | Continuity of Care Document ---
Author Author [facility] Organization [facility] Address Unknown Phone Unavailable Allergies Active Description Code Type Severity Reaction Onset Reported/Identified Relationship to Patient Clinical Status Yes meperidine [id number] Drug Allergy Unknown N/A 07/25/2006 Medications There is no data. Problems Date Dx Coded Attending Type Code Diagnosis Diagnosed By 01/27/2013 MADHAV GALDAMEZ MD Ot 562.11 DIVERTICULITIS COLON (W/O MENT OF HEMORR 01/27/2013 MADHAV GALDAMEZ MD Ot 789.00 ABDOMINAL PAIN, UNSPECIFIED SITE 01/11/2015 MARIA ELENA COHEN [employer] Ot V76.12 02/06/2015 MAIRA ELENA COHEN [employer] Ot 240.9 02/06/2015 MARIA ELENA COHEN [employer] Ot 250.00 02/06/2015 MARIA ELENA COHEN [employer] Ot 780.79 02/06/2015 MARIA ELENA COHEN [employer] Ot V58.69 02/25/2015 MARIA ELENA COHEN [employer] Ot 240.9 02/25/2015 MARIA ELENA COHEN [employer] Ot 250.00 02/25/2015 MARIA ELENA COHEN [employer] Ot 780.79 02/25/2015 MARIA ELENA COHEN [employer] Ot V58.69 07/13/2016 ALVERTO COHEN DO Ot [...] GIDDINESS 03/06/2017 PAMELA BERG MD Ot Z79.84 JAIL (CURRENT) USE OF ORAL HYPOGLYC 03/06/2017 PAMELA BERG MD Ot Z87.891 PERSONAL HISTORY OF NICOTINE DEPENDENCE 03/06/2017 PAMELA BERG MD Ot Z90.49 ACQUIRED ABSENCE OF OTHER SPECIFIED PART 03/06/2017 PAMELA BERG MD Ot Z90.710 ACQUIRED ABSENCE OF BOTH CERVIX AND UTER 03/06/2017 MARIA ELENA COHEN [employer] Ot 562.10 DIVERTICULOSIS COLON (W/O MENT OF HEMORR 03/06/2017 MARIA ELENA COHEN [employer] Ot 592.0 CALCULUS OF KIDNEY 03/06/2017 MARIA ELENA COHEN [employer] Ot 790.5 ABN SERUM ENZY LEVEL NEC 03/06/2017 MARIA ELENA COHEN [employer] Ot V76.12 OTH SCREEN MAMMO-MALIGN NEOPLASM OF SABRINA 03/06/2017 MARIA ELENA COHEN [employer] Ot V76.12 OTH SCREEN MAMMO-MALIGN NEOPLASM OF SABRINA 03/06/2017 MARIA ELENA COHEN [employer] Ot 240.9 GOITER NOS 03/06/2017 MARIA ELENA COHEN [employer] Ot 250.00 DIAB BRENDA WO COMPL, TYPE II OR UNSPEC TY 03/06/2017 MARIA ELENA COHEN [employer] Ot 780.79 OTH MALAISE FATIGUE 03/06/2017 MARIA ELENA COHEN [employer] Ot V58.69 OTH MED,LT,CURRENT USE 03/06/2017 ALVERTO [...] GIDDINESS 03/08/2017 PAMELA BERG MD Ot Z79.84 JAIL (CURRENT) USE OF ORAL HYPOGLYC 03/08/2017 PAMELA [...] GIDDINESS 03/12/2017 PAMELA BERG MD Ot Z79.84 JAIL (CURRENT) USE OF ORAL HYPOGLYC 03/12/2017 PAMELA BERG MD Ot Z87.891 PERSONAL HISTORY OF NICOTINE DEPENDENCE 03/12/2017 PAMELA BERG MD Ot Z90.49 ACQUIRED ABSENCE OF OTHER SPECIFIED PART 03/12/2017 PAMELA BERG MD Ot Z90.710 ACQUIRED ABSENCE OF BOTH CERVIX AND UTER 01/12/2018 RADHA ALLEN MD Ot E11.9 TYPE 2 DIABETES MELLITUS WITHOUT COMPLIC 01/12/2018 RADHA ALLEN MD Ot E86.0 DEHYDRATION 01/12/2018 RADHA ALLEN MD Ot I10 ESSENTIAL (PRIMARY) HYPERTENSION 01/12/2018 RADHA ALLEN MD Ot K21.9 GASTRO-ESOPHAGEAL REFLUX DISEASE WITHOUT 01/12/2018 RADHA ALLEN MD Ot R50.9 FEVER, UNSPECIFIED 01/12/2018 RADHA ALLEN MD Ot R51 HEADACHE 01/12/2018 RADHA ALLEN MD Ot S30.861A INSECT BITE (NONVENOMOUS) OF ABDOMINAL W 01/12/2018 RADHA ALLEN MD Ot W57.XXXA BIT/STUNG BY NONVENOM INSECT OTH NONVE 01/12/2018 RADHA ALLEN MD Ot Z87.891 PERSONAL HISTORY OF NICOTINE DEPENDENCE 01/12/2018 RADHA ALLEN MD Ot Z88.8 ALLERGY STATUS TO OTH DRUG/MEDS/BIOL SUB 01/12/2018 RADHA ALLEN MD Ot Z90.49 ACQUIRED ABSENCE OF OTHER SPECIFIED PART 01/12/2018 RADHA ALLEN MD Ot Z90.710 ACQUIRED ABSENCE OF BOTH CERVIX AND UTER 01/16/2018 RADHA ALLEN MD Ot E11.9 TYPE 2 DIABETES MELLITUS WITHOUT COMPLIC 01/16/2018 RADHA ALLEN MD Ot E86.0 DEHYDRATION 01/16/2018 RADHA ALLEN MD Ot I10 ESSENTIAL (PRIMARY) HYPERTENSION 01/16/2018 RADHA ALLEN MD Ot K21.9 GASTRO-ESOPHAGEAL REFLUX DISEASE WITHOUT 01/16/2018 RADHA ALLEN MD Ot R50.9 FEVER, UNSPECIFIED 01/16/2018 RADHA ALLEN MD Ot R51 HEADACHE 01/16/2018 RADHA ALLEN MD Ot S30.861A INSECT BITE (NONVENOMOUS) OF ABDOMINAL W 01/16/2018 RADHA ALLEN MD Ot W57.XXXA BIT/STUNG BY NONVENOM INSECT OTH NONVE 01/16/2018 RADHA ALLEN MD Ot Z87.891 PERSONAL HISTORY OF NICOTINE DEPENDENCE 01/16/2018 RADHA ALLEN MD Ot Z88.8 ALLERGY STATUS TO OTH DRUG/MEDS/BIOL SUB 01/16/2018 RADHA ALLEN MD Ot Z90.49 ACQUIRED ABSENCE OF OTHER SPECIFIED PART 01/16/2018 RADHA ALLEN MD Ot Z90.710 ACQUIRED ABSENCE OF BOTH [...] plasma albumin measurement (mass/volume) 4.1 g/dL 3.2-4.5 Complete blood count (CBC) with automated white blood cell (WBC) differential - 01/12/18 19:45 Blood leukocytes automated count (number/volume) 5.6 10*3/uL 4.3-11.0 Blood erythrocytes automated count (number/volume) 4.31 10*6/uL 4.35-5.85 Venous blood hemoglobin measurement (mass/volume) 13.0 g/dL 11.5-16.0 Blood hematocrit (volume fraction) 38 % 35-52 Automated erythrocyte mean corpuscular volume 88 [foz_us] 80-99 Automated erythrocyte mean corpuscular hemoglobin (mass per erythrocyte) 30 pg 25-34 Automated erythrocyte mean corpuscular hemoglobin concentration measurement ( mass/volume) 34 g/dL 32-36 Automated erythrocyte distribution width ratio 12.8 % 10.0-14.5 Automated blood platelet count (count/volume) 226 10*3/uL 130-400 Automated blood platelet mean volume measurement 10.3 [foz_us] 7.4-10.4 Automated blood neutrophils/100 leukocytes 74 % 42-75 Automated blood lymphocytes/100 leukocytes 17 % 12-44 Blood monocytes/100 leukocytes 5 % 0-12 Automated blood eosinophils/100 leukocytes 3 % 0-10 Automated blood basophils/100 leukocytes 0 % 0-10 Blood neutrophils automated count (number/volume) 4.1 10*3 1.8-7.8 Blood lymphocytes automated count (number/volume) 0.9 10*3 1.0-4.0 Blood monocytes automated count (number/volume) 0.3 10*3 0.0-1.0 Automated eosinophil count 0.2 10*3/uL 0.0-0.3 Automated blood basophil count (count/volume) 0.0 10*3/uL 0.0-0.1 Comprehensive metabolic panel - 01/12/18 19:45 Serum or plasma sodium measurement (moles/volume) 138 mmol/L 135-145 Serum or plasma potassium measurement (moles/volume) 4.7 mmol/L 3.6-5.0 Serum or plasma chloride measurement (moles/volume) 105 mmol/L 98-107 Carbon dioxide 20 mmol/L 21-32 Serum or plasma anion gap determination (moles/volume) 13 mmol/L 5-14 Serum or plasma urea nitrogen measurement (mass/volume) 19 mg/dL 7-18 Serum or plasma creatinine measurement (mass/volume) 1.14 mg/dL 0.60-1.30 Serum or plasma urea nitrogen/creatinine mass ratio 17 NRG Serum or plasma creatinine measurement with calculation of estimated glomerular filtration rate 47 NRG Serum or plasma glucose measurement (mass/volume) 114 mg/dL 70-105 Serum or plasma calcium measurement (mass/volume) 9.6 mg/dL 8.5-10.1 Serum or plasma total bilirubin measurement (mass/volume) 0.4 mg/dL 0.1-1.0 Serum or plasma alkaline phosphatase measurement (enzymatic activity/volume) 60 U/L 40-136 Serum or plasma aspartate aminotransferase measurement (enzymatic activity/ volume) 30 U/L 5-34 Serum or plasma alanine aminotransferase measurement (enzymatic activity/volume ) 37 U/L 0-55 Serum or plasma protein measurement (mass/volume) 7.2 g/dL 6.4-8.2 Serum or plasma albumin measurement (mass/volume) 4.3 g/dL 3.2-4.5 Serum or plasma C reactive protein measurement (mass/volume) - 01/12/18 19:45 Serum or plasma C reactive protein measurement (mass/volume) 1.29 mg /dL 0.00-0.50 Tick identification panel - 01/12/18 19:45 Serum Ehrlichia chaffeensis IgG antibody detection <1:16 <1:16 Serum Ehrlichia chaffeensis IgM antibody detection <1:10 <1:10 Serum Rickettsia rickettsii IgG antibody assay (units/volume) < <1:16 [place] spotted fever panel < <1:10 Francisella tularensis antibody assay <1:20 NRG LYME AB G M 0.02 % 0.00-0.89 Interpretation of Lyme disease antibody assay Negative Negative Complete urinalysis with reflex to culture - 01/12/18 20:21 Urine color determination YELLOW NRG Urine clarity determination CLEAR NRG Urine pH measurement by test strip 5 5-9 Specific gravity of urine by test strip 1.010 1.016- 1.022 Urine protein assay by test strip, semi-quantitative 1+ NEGATIVE Urine glucose detection by automated test strip 4+ NEGATIVE Erythrocytes detection in urine sediment by light microscopy NEGATIVE NEGATIVE Urine ketones detection by automated test strip 2+ NEGATIVE Urine nitrite detection by test strip NEGATIVE NEGATIVE Urine total bilirubin detection by test strip NEGATIVE NEGATIVE Urine urobilinogen measurement by automated test strip (mass/volume) NORMAL NORMAL Urine leukocyte esterase detection by dipstick NEGATIVE NEGATIVE Automated urine sediment erythrocyte count by microscopy (number/high power field) NONE NRG Automated urine sediment leukocyte count by microscopy (number/high power field ) NONE NRG Bacteria detection in urine sediment by light microscopy NONE NRG Squamous epithelial cells detection in urine sediment by light microscopy 10-25 NRG Crystals detection in urine sediment by light microscopy NONE NRG Casts detection in urine sediment by light microscopy NONE NRG Mucus detection in urine sediment by light microscopy NEGATIVE NRG Complete urinalysis with reflex to culture NO NRG Encounters ACCT No. Visit Date/Time Discharge Status Pt. Type Provider Facility Loc./Unit Complaint [id number] 01/12/2018 19:32:00 01/12/2018 21:58:00 DIS Emergency TIFFANY DONAHUE, RADHA Jon [facility] ER TICK BITE/NAUSEA/ CHILLS [id number] 03/06/2017 06:50:00 03/06/2017 09:18:00 DIS Emergency PAMELA BERG MD [facility] ER DIZZY HEAD CONGESTION [id number] 01/12/2017 11:32:00 01/12/2017 23:59:59 CLS Outpatient NOEL TOSCANO ALVERTO Rae [facility] RAD M54.5 [id number] 07/13/2016 10:16:00 07/13/2016 23:59:59 CLS Outpatient NOEL TOSCANO ALVERTO Rae [facility] RAD SCREENING [id number] 01/02/2015 11:30:00 01/02/2015 23:59:59 CLS Outpatient MARIA ELENA COHEN [employer] [facility] RAD THYROIDMEGALY, FATIGUE,DM [id number] 11/29/2014 10:51:00 11/29/2014 23:59:59 CLS Outpatient ESA COHENIA L [employer] [facility] RAD SCREENING [id number] 08/24/2013 13:42:00 08/24/2013 23:59:59 CLS Outpatient MARIA ELENA COHEN [employer] [facility] RAD ROUTINE,ABD PAIN [id number] 01/27/2013 21:49:00 01/27/2013 23:45:00 DIS Emergency MADHAV GALDAMEZ MD [facility] ER FEVER, L SIDE PAIN [id number] 08/05/2018 12:15:00 ACT Emergency TIFFANY DONAHUE, RADHA Jon [facility] ER CHEST PAIN
[2018-08-05 12:38] LABS: BASOPHILS % (AUTO) 0 % (0-10); EOSINOPHILS # (AUTO) 0.2 10^3/uL (0.0-0.3); EOSINOPHILS % (AUTO) 3 % (0-10); HEMATOCRIT 41 % (35-52); HEMOGLOBIN 13.4 G/DL (11.5-16.0); LYMPHOCYTES # (AUTO) 2.5 X 10^3 (1.0-4.0); LYMPHOCYTES % (AUTO) 38 % (12-44); MEAN CORPUSCULAR HEMOGLOBIN 28 PG (25-34); MEAN CORPUSCULAR HGB CONC 33 G/DL (32-36); MEAN CORPUSCULAR VOLUME 86 FL (80-99); MEAN PLATELET VOLUME 9.8 FL (7.4-10.4); MONOCYTES # (AUTO) 0.5 X 10^3 (0.0-1.0); MONOCYTES % (AUTO) 7 % (0-12); NEUTROPHILS # (AUTO) 3.5 X 10^3 (1.8-7.8); NEUTROPHILS % (AUTO) 53 % (42-75); PLATELET COUNT 285 10^3/uL (130-400); RED BLOOD COUNT 4.75 10^6/uL (4.35-5.85); RED CELL DISTRIBUTION WIDTH 13.7 % (10.0-14.5); WHITE BLOOD COUNT 6.7 10^3/uL (4.3-11.0)
[2018-08-05 12:43] LABS: PROTHROMBIN TIME PATIENT 12.9 SEC (12.2-14.7)
--- NOTE | 2018-08-05 12:44 | ED Chest Pain ---
General Chief Complaint: Chest Pain Stated Complaint: CHEST PAIN Source: patient Exam Limitations: no limitations History of Present Illness Date Seen by Provider: Aug 05, 2018 Time Seen by Provider: 12:30 Initial Comments Here with report of central chest pain that started about an hour ago and is radiating to her back. Is associated with belching. She took a couple of times and that did not help. No previous heart history but has significant family history of heart problems. She is also diabetic and has high blood pressure. Denies nausea or vomiting. Does feel like she sweating and relates that the pain. Timing/Duration: 1 hour Severity/Quality: moderate, ingestion, pressure Location: central Radiation: back Activities at Onset: none Prior CP/Workup: no prior chest pain Modifying Factors: improves with antacids, improves with rest ASA po GRAPPLER: No NTG SL GRAPPLER: No Associated Symptoms: abdominal pain, back pain; No edema, No fever/chills; heartburn; No nausea/vomiting, No rash, No shortness of breath, No weakness Allergies and Home Medications Allergies Coded Allergies: Meperidine (Verified Allergy, Unknown, 07/25/06) Home Medications Amoxicillin 500 Mg Capsule, 1 EACH PO BID Prescribed by: MILANA CALI MD on 08/29/09 0549 Carbamazepine 200 Mg Tablet, 200 MG PO BID Prescribed by: MILANA CALI MD on 08/29/0949 Hydrocodone Bit/Acetaminophen 1 Tab Tablet, 1 EACH PO Q 4 - 6 HRS PRN Prescribed by: MILANA CALI MD on 08/29/09 0549 Hydrocodone Bit/Acetaminophen 1 Each Tablet, 1-2 EACH PO Q4HR PRN Prescribed by: MADHAV GALDAMEZ on 01/27/132324 Levofloxacin 750 Mg Tablet, 750 MG PO DAILY Prescribed by: MADHAV GALDAMEZ on 01/27/132324 Meclizine HCl 25 Mg Tablet, 25 MG PO 4 times a day Prescribed by: PAMELA BERG on 03/06/17 0835 Metronidazole 500 Mg Tab, 1 EACH PO QID Prescribed by: MADHAV GALDAMEZ on 01/27/132324 Patient Home Medication List Home Medication List Reviewed: Yes Review of Systems Review of Systems Constitutional: see HPI; No chills, No fever EENTM: No Symptoms Reported Respiratory: Denies Cough, Denies Shortness of Air; Other (pain with deep breathing) Cardiovascular: Chest Pain; Denies Edema Gastrointestinal: Abdominal Pain; Denies Constipated, Denies Diarrhea Genitourinary: No Symptoms Reported Musculoskeletal: back pain; No muscle pain Skin: no symptoms reported All Other Systems Reviewed Negative Unless Noted: Yes Past Qvnjmcg-Rzhryk-Ywxtnt Hx Past Med/Social Hx: Reviewed Nursing Past Med/Soc Hx Patient Social History Alcohol Use: Denies Use Recreational Drug Use: No Smoking Status: Former Smoker Type Used: Cigarettes Former Smoker, Quit: Feb 27, 1975 2nd Hand Smoke Exposure: No Recent Foreign Travel: No Contact w/Someone Who Travel: No Past Medical History Surgeries: Yes (CHOELECYSTECTOMY, HYSTERECTOMY) Gallbladder, Hysterectomy Respiratory: No Cardiac: Yes Hypertension 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 oz. 79.097622sv; BMI Method:Stated General Appearance: No Apparent Distress, WD/WN HEENT: PERRL/EOMI, Pharynx Normal Neck: Non Tender, Supple Respiratory: Lungs Clear, Normal Breath Sounds Cardiovascular: Regular Rate, Rhythm, No Murmur Gastrointestinal: Non Tender, Soft Extremity: Normal Inspection, Normal Range of Motion, Non Tender, No Calf Tenderness Neurologic/Psychiatric: Alert, Oriented x3 Skin: Normal Color, Warm/Dry Progress/Results/Core Measures Results/Orders Lab Results Laboratory Tests Test 08/05/18 12:24 Range/Units White Blood Count 6.7 4.3-11.0 10^3/uL Red Blood Count 4.75 4.35-5.85 10^6/uL Hemoglobin 13.4 11.5-16.0 G/DL Hematocrit 41 35-52 % Mean Corpuscular Volume 86 80-99 FL Mean Corpuscular Hemoglobin 28 25-34 PG Mean Corpuscular Hemoglobin Concent 33 32-36 G/DL Red Cell Distribution Width 13.7 10.0-14.5 % Platelet Count 285 130-400 10^3/uL Mean Platelet Volume 9.8 7.4-10.4 FL Neutrophils (%) (Auto) 53 42-75 % Lymphocytes (%) (Auto) 38 12-44 % Monocytes (%) (Auto) 7 0-12 % Eosinophils (%) (Auto) 3 0-10 % Basophils (%) (Auto) 0 0-10 % Neutrophils # (Auto) 3.5 1.8-7.8 X 10^3 Lymphocytes # (Auto) 2.5 1.0-4.0 X 10^3 Monocytes # (Auto) 0.5 0.0-1.0 X 10^3 Eosinophils # (Auto) 0.2 0.0-0.3 10^3/uL Basophils # (Auto) 0.0 0.0-0.1 10^3/uL Prothrombin Time 12.9 12.2-14.7 SEC INR Comment 1.0 0.8-1.4 Activated Partial Thromboplast Time 30 24-35 SEC Sodium Level 139 135-145 MMOL/L Potassium Level 3.7 3.6-5.0 MMOL/L Chloride Level 105 98-107 MMOL/L Carbon Dioxide Level 19 L 21-32 MMOL/L Anion Gap 15 H 5-14 MMOL/L Blood Urea Nitrogen 20 H 7-18 MG/DL Creatinine 1.18 0.60-1.30 MG/DL Estimat Glomerular Filtration Rate 45 BUN/Creatinine Ratio 17 Glucose Level 137 H 70-105 MG/DL Calcium Level 9.6 8.5-10.1 MG/DL Corrected Calcium 9.4 8.5-10.1 MG/DL Magnesium Level 1.7 L 1.8-2.4 MG/DL Total Bilirubin 0.3 0.1-1.0 MG/DL Aspartate Amino Transf (AST/SGOT) 35 H 5-34 U/L Alanine Aminotransferase (ALT/SGPT) 30 0-55 U/L Alkaline Phosphatase 71 40-136 U/L Myoglobin 47.6 10.0-92.0 NG/ML Troponin I < 0.30 <0.30 NG/ML Total Protein 7.3 6.4-8.2 GM/DL Albumin 4.2 3.2-4.5 GM/DL Lipase 6256 H 8-78 U/L My Orders Orders - RADHA ALLEN MD Cbc With Automated Diff (08/05/18 12:31) Magnesium (08/05/18 12:31) Chest 1 View, Ap/Pa Only (08/05/18 12:31) Ekg Tracing (08/05/18 12:31) Cardiac Profile 1 (08/05/18 12:31) Comprehensive Metabolic Panel (08/05/18 12:31) Myoglobin Serum (08/05/18 12:31) Protime With Inr (08/05/18 12:31) Partial Thromboplastin Time (08/05/18 12:31) O2 (08/05/18 12:31) Monitor-Rhythm Ecg Trace Only (08/05/18 12:31) Lipid Panel (08/06/18 06:00) Aspirin Chewable Tablet (Baby Aspirin Ch (08/05/18 12:45) Saline Lock/Iv-Start (08/05/18 12:31) Lipase (08/05/18 12:31) Lidocaine 2% Viscous 15 Ml (Xylocaine Vi (08/05/18 12:45) Antacid Suspension (Mylanta Suspension (08/05/18 12:45) Nitroglycerin 0.4 Mg Btl 25's (Nitrostat (08/05/18 12:45) Ns Iv 1000 Ml (Sodium Chloride 0.9%) (08/05/18 13:14) Ns Iv 1000 Ml (Sodium Chloride 0.9%) (08/05/18 13:13) Ct Abdomen/Pelvis W (08/05/18 13:26) Iohexol Injection (Omnipaque 350 Mg/Ml 1 (08/05/18 14:00) Contrast Received (Contrast Received) (08/05/18 14:00) Sodium Chloride Flush (Catheter Flush Sy (08/05/18 14:00) Ns (Ivpb) (Sodium Chloride 0.9% Ivpb Bag (08/05/18 14:00) Saline Lock/Iv-Start (08/05/18 14:38) Ns Iv 1000 Ml (Sodium Chloride 0.9%) (08/05/18 14:38) Acetaminophen Tablet (Tylenol Tablet) (08/05/18 14:43) Medications Given in ED Current Medications Medications Dose Ordered Sig/Yusuf Route Start Time Stop Time Status Last Admin Dose Admin Al Hydrox/Mg Hydrox/Simethicone 30 ml ONCE ONCE PO 08/05/18 12:45 08/05/18 12:46 DC 08/05/18 12:45 30 ML Aspirin 324 mg ONCE ONCE PO 08/05/18 12:45 08/05/18 12:46 DC 08/05/18 12:45 324 MG Iohexol 75 ml ONCE ONCE IV 08/05/18 14:00 08/05/18 14:01 DC 08/05/18 14:15 75 ML Lidocaine HCl 15 ml ONCE ONCE PO 08/05/18 12:45 08/05/18 12:46 DC 08/05/18 12:45 15 ML Nitroglycerin 0.4 mg UD PRN SL 08/05/18 12:45 08/05/18 12:45 0.4 MG Sodium Chloride 10 ml NEEDED PRN IV 08/05/18 14:00 08/05/18 14:15 10 ML Sodium Chloride 100 ml ONCE ONCE IV 08/05/18 14:00 08/05/18 14:01 DC 08/05/18 14:15 80 ML Sodium Chloride 1,000 ml @ 0 mls/hr Q0M ONCE IV 08/05/18 13:14 08/05/18 13:15 DC 08/05/18 13:14 1,000 MLS/HR Sodium Chloride 1,000 ml @ 0 mls/hr Q0M ONCE IV 08/05/18 14:38 08/05/18 14:39 DC 08/05/18 14:50 0 MLS/HR Vital Signs/I&O 08/05/18 12:29 Temp 98.2 Pulse 84 Resp 20 B/P (MAP) 185/89 (121) Progress Progress Note : Progress Note Seen and evaluated. IV, labs, EKG and chest x-ray ordered. ASA 324 g by mouth ordered. Nitroglycerin sublingual ordered. GI cocktail ordered. Monitor patient. 1317: Patient had. Drop in blood pressure precipitously after nitroglycerin. Chest pain is gone. Normal saline 1 L bolus ordered. Blood pressure 85/50 from 140s systolic. Monitor patient. Initial ECG Impression Date: Aug 05, 2018 Initial ECG Impression Time: 12:22 Initial ECG Rate: 91 Initial ECG Rhythm: Normal Sinus Initial ECG Comparisson: No Previous ECG Available Comment Sinus rhythm with normal axis. No evidence of ST elevation MO. No previous available for comparison. Interpreted by me. Diagnostic Imaging Diagonstic Imaging: Xray Plain Films/CT/US/NM/MRI: chest Comments NAME: MARIA ELENA COLEMAN [facility] REC#: [id number] PT STATUS: REG ER : 1945 PHYSICIAN: RADHA ALLEN MD ADMIT DATE: 08/05/18/ER Signed Date of Exam: 08/05/18 CHEST 1 VIEW, AP/PA ONLY Portable chest. INDICATION: Chest pain. No comparison available FINDINGS: There are no radiographic findings of focal infiltrate or consolidation. There is no effusion. There is no pneumothorax. Heart size appears appropriate. Pulmonary vascularity appears within normal limits without evidence to suggest failure. There is no acute osseous abnormality. IMPRESSION: 1. No radiographic evidence of an acute cardiopulmonary process. Dictated by: Dictated on workstation # [id number] Dict: 08/05/18 1318 Trans: 08/05/18 1402 Interpreted by: AMADA BOYKIN MD Electronically signed by: AMADA BOYKIN MD 08/05/18 1402 Reviewed: Reviewed by Me Diagonstic Imaging: CT Plain Films/CT/US/NM/MRI: abdomen, pelvis Comments NAME: MARIA ELENA COLEMAN [facility] REC#: [id number] PT STATUS: [facility] ER : 1945 PHYSICIAN: RADHA ALLEN MD ADMIT DATE: 08/05/18/ER Signed Date of Exam: 08/05/18 CT ABDOMEN/PELVIS W PROCEDURE: CT abdomen and pelvis with contrast. TECHNIQUE: Multiple contiguous axial images were obtained through the abdomen and pelvis after administration of intravenous contrast. INDICATION: Right-sided chest pain. Nausea. History of pancreatitis. Comparison made with prior examination from 08/24/13. FINDINGS: The lung bases demonstrate no focal infiltrate or effusion. The liver demonstrates hepatic steatosis without evidence of intrahepatic abnormality. The patient is status post cholecystectomy. There is no abnormal biliary dilatation. There is some abnormal induration demonstrated within the fat along the pancreatic body suggestive of a pancreatitis. There is a normal appearance of the spleen. The adrenal glands appear normal. The kidneys appear nonobstructed. Small and large bowel appear normal in caliber without evidence of obstruction. There is no focal abnormal bowel thickening. There is uncomplicated sigmoid diverticulosis. There is moderate stool within the colon. The patient is status post prior hysterectomy. There is no pelvic mass. There is no evidence of free air, free fluid or abscess. There are no pathologically enlarged lymph nodes. There are mild atherosclerotic calcifications within the aorta. There is multilevel degenerative disc disease and facet arthropathy but no acute or suspicious osseous abnormality. Impression: 1. Abnormal induration and fat stranding along the body of the pancreas suggested for recurrent pancreatitis. 2. Previous cholecystectomy without biliary dilatation. 3. Hepatic steatosis. 4. Small hiatal hernia. 5. Uncomplicated diverticulosis. 6. Previous hysterectomy 7. No free air, free fluid, abscess or pathologic adenopathy. Dictated by: Dictated on workstation # [id number] Dict: 08/05/18 1428 Trans: 08/05/18 1436 Interpreted by: AMADA BOYKIN MD Electronically signed by: AMADA BOYKIN MD 08/05/18 1436 Reviewed: Reviewed by Me Departure Communication (Admissions) Time/Spoke to Admitting Phy: 14:54 Impression Primary Impression: Acute pancreatitis Qualified Codes: K85.90 - Acute pancreatitis without necrosis or infection, unspecified Disposition: 09 ADMITTED INPATIENT Condition: Stable Admissions Decision to Admit Reason: Admit from ER (General) Decision to Admit/Date: Aug 05, 2018 Time/Decision to Admit Time: 14:54 Departure-Patient Inst. Referrals: ALVERTO COHEN DO (PCP/Family) Primary Care Physician RADHA ALLEN MD Aug 05, 2018 12:44
[2018-08-05] MEDS ORDERED: ASPIRIN 81 MG CHEW (CHILDREN'S ASA) PO ONE (12:45)
[2018-08-05] MEDS ORDERED: NITROGLYCERIN 0.4 MG SL TABS BTL 25'S SL PRN (12:45)
[2018-08-05] MEDS ORDERED: ANTACID SUSP 30 ML UDC (MYLANTA) PO ONE (12:45)
[2018-08-05] MEDS ORDERED: LIDOCAINE 2% VISCOUS 15 ML UDC PO ONE (12:45)
[2018-08-05 12:50] LABS: ALANINE AMINOTRANSFERASE 30 U/L (0-55); ALBUMIN 4.2 GM/DL (3.2-4.5); ALKALINE PHOSPHATASE 71 U/L (40-136); BILIRUBIN,TOTAL 0.3 MG/DL (0.1-1.0); BUN/CREATININE RATIO 17; CALCIUM 9.6 MG/DL (8.5-10.1); CARBON DIOXIDE 19 MMOL/L (21-32); CHLORIDE 105 MMOL/L (98-107); CREATININE SERUM 1.18 MG/DL (0.60-1.30); GFR ESTIMATED 45; GLUCOSE 137 MG/DL (70-105); MAGNESIUM 1.7 MG/DL (1.8-2.4); POTASSIUM 3.7 MMOL/L (3.6-5.0); SODIUM 139 MMOL/L (135-145); TOTAL PROTEIN 7.3 GM/DL (6.4-8.2)
[2018-08-05 12:57] LABS: MYOGLOBIN SERUM 47.6 NG/ML (10.0-92.0)
[2018-08-05] MEDS ORDERED: NS IV 1000 ML 1,000 ML ONE (13:13)
[2018-08-05] MEDS ORDERED: NS IV 1000 ML 1,000 ML IV ONE ×2 (13:14→14:38)
--- NOTE | 2018-08-05 13:29 | Diagnostic Imaging Report ---
Portable chest. INDICATION: Chest pain. No comparison available FINDINGS: There are no radiographic findings of focal infiltrate or consolidation. There is no effusion. There is no pneumothorax. Heart size appears appropriate. Pulmonary vascularity appears within normal limits without evidence to suggest failure. There is no acute osseous abnormality. IMPRESSION: 1. No radiographic evidence of an acute cardiopulmonary process. Dictated by: Dictated on workstation # [id number]
[2018-08-05] MEDS ORDERED: IOHEXOL 350 MG/ML 100 ML (OMNIPAQUE 350) VIAL IV ONE (14:00)
[2018-08-05] MEDS ORDERED: NS 100 ML (IVPB) BAG IV ONE (14:00)
[2018-08-05] MEDS ORDERED: RECEIVED CONTRAST (Hold Metformin) IV SCH (14:00)
[2018-08-05] MEDS ORDERED: CATHETER FLUSH 10 ML SYR IV PRN (14:00)
[2018-08-05 14:01] LABS: LIPASE 6256 U/L (8-78)
--- NOTE | 2018-08-05 14:36 | Diagnostic Imaging Report ---
PROCEDURE: CT abdomen and pelvis with contrast. TECHNIQUE: Multiple contiguous axial images were obtained through the abdomen and pelvis after administration of intravenous contrast. INDICATION: Right-sided chest pain. Nausea. History of pancreatitis. Comparison made with prior examination from 08/24/13. FINDINGS: The lung bases demonstrate no focal infiltrate or effusion. The liver demonstrates hepatic steatosis without evidence of intrahepatic abnormality. The patient is status post cholecystectomy. There is no abnormal biliary dilatation. There is some abnormal induration demonstrated within the fat along the pancreatic body suggestive of a pancreatitis. There is a normal appearance of the spleen. The adrenal glands appear normal. The kidneys appear nonobstructed. Small and large bowel appear normal in caliber without evidence of obstruction. There is no focal abnormal bowel thickening. There is uncomplicated sigmoid diverticulosis. There is moderate stool within the colon. The patient is status post prior hysterectomy. There is no pelvic mass. There is no evidence of free air, free fluid or abscess. There are no pathologically enlarged lymph nodes. There are mild atherosclerotic calcifications within the aorta. There is multilevel degenerative disc disease and facet arthropathy but no acute or suspicious osseous abnormality. Impression: 1. Abnormal induration and fat stranding along the body of the pancreas suggested for recurrent pancreatitis. 2. Previous cholecystectomy without biliary dilatation. 3. Hepatic steatosis. 4. Small hiatal hernia. 5. Uncomplicated diverticulosis. 6. Previous hysterectomy 7. No free air, free fluid, abscess or pathologic adenopathy. Dictated by: Dictated on workstation # [id number]
[2018-08-05] MEDS ORDERED: ACETAMINOPHEN 500 MG TAB (TYLENOL) PO STA (14:43)
[2018-08-05 15:40] VITALS: BP 176/77
[2018-08-05] MEDS: NS IV 1000 ML 1,000 ML IV SCH (16:25)
[2018-08-05] MEDS ORDERED: FLU QUADRIvalent (5+ YOA) 2018-2019 (AFLURIA) 0.5 ML IM ONE (16:30)
[2018-08-05] MEDS ORDERED: ONDANSETRON 4 MG/2 ML (SDV) Z0FRAN IV PRN (16:30)
[2018-08-05] MEDS ORDERED: fentaNYL INJECTION 100 MCG/2 ML AMP IV PRN (16:30)
[2018-08-05] MEDS ORDERED: LORA-405 PO (16:31)
[2018-08-05] MEDS ORDERED: LOSA1TAB23 PO (16:41)
[2018-08-05] MEDS ORDERED: METF-399 PO (16:41)
[2018-08-05] MEDS ORDERED: EMPA10TA PO (16:43)
[2018-08-05] MEDS ORDERED: ESTR0.5T PO (16:43)
[2018-08-05] MEDS ORDERED: LORazepam 1 MG (ATIVAN) TAB ONE (20:27)
[2018-08-05 20:30] VITALS: BP 177/78
[2018-08-05] MEDS: inSUlin ASPART (NovoLOG) 1 UNIT/0.01 ML (CHARGE PER UNIT) SC SCH (20:30)
[2018-08-05] MEDS: ACETAMINOPHEN 500 MG TAB (TYLENOL) PO PRN (20:31)
[2018-08-05] MEDS: LORazepam 1 MG (ATIVAN) TAB PO SCH (20:31)
[2018-08-06 00:11] VITALS: BP 172/76
[2018-08-06 03:58] VITALS: BP 160/68
[2018-08-06] MEDS: NS IV 1000 ML 1,000 ML IV SCH (04:48)
[2018-08-06] MEDS: inSUlin ASPART (NovoLOG) 1 UNIT/0.01 ML (CHARGE PER UNIT) SC SCH ×4 (05:38→20:18)
[2018-08-06 05:45] LABS: BASOPHILS % (AUTO) 0 % (0-10); EOSINOPHILS # (AUTO) 0.1 10^3/uL (0.0-0.3); EOSINOPHILS % (AUTO) 2 % (0-10); HEMATOCRIT 36 % (35-52); HEMOGLOBIN 12.1 G/DL (11.5-16.0); LYMPHOCYTES # (AUTO) 2.5 X 10^3 (1.0-4.0); LYMPHOCYTES % (AUTO) 40 % (12-44); MEAN CORPUSCULAR HEMOGLOBIN 29 PG (25-34); MEAN CORPUSCULAR HGB CONC 33 G/DL (32-36); MEAN CORPUSCULAR VOLUME 86 FL (80-99); MONOCYTES # (AUTO) 0.4 X 10^3 (0.0-1.0); MONOCYTES % (AUTO) 6 % (0-12); NEUTROPHILS # (AUTO) 3.2 X 10^3 (1.8-7.8); NEUTROPHILS % (AUTO) 52 % (42-75); PLATELET COUNT 217 10^3/uL (130-400); RED BLOOD COUNT 4.19 10^6/uL (4.35-5.85); RED CELL DISTRIBUTION WIDTH 13.7 % (10.0-14.5); WHITE BLOOD COUNT 6.3 10^3/uL (4.3-11.0)
[2018-08-06 06:14] LABS: ALBUMIN 3.7 GM/DL (3.2-4.5); BILIRUBIN,TOTAL 0.3 MG/DL (0.1-1.0); CALCIUM 8.8 MG/DL (8.5-10.1); CHOLESTEROL 139 MG/DL (< 200); CREATININE SERUM 1.02 MG/DL (0.60-1.30); HDL CHOLESTEROL 40 MG/DL (40-60); POTASSIUM 3.6 MMOL/L (3.6-5.0); TOTAL PROTEIN 6.2 GM/DL (6.4-8.2); TRIGLYCERIDES 174 MG/DL (<150); VLDL CHOLESTEROL 35 MG/DL (5-40)
[2018-08-06] MEDS: ACETAMINOPHEN 500 MG TAB (TYLENOL) PO PRN ×2 (07:38→14:34)
[2018-08-06 08:00] VITALS: BP 177/78
[2018-08-06] MEDS: LOSARTAN 100 MG (COZAAR) TABLET PO SCH (09:13)
--- NOTE | 2018-08-06 11:12 | History & Physical-Hospitalist ---
History of Present Illness HPI/Chief Complaint Patient reports initially middle of last week she had loss of her usually voracious appetite but initially without any pain or abdominal distress. Tuesday she noted increase right sided mid back discomfort a boring kind of discomfort that then by Tuesday morning was associated with epigastric and lower precordial chest discomfort. She noted increased belching with this. Because of her diabetes and chest discomfort she was concerned about heart disease and finally presented emergency room later Tuesday. They're in the course of her workup it was noted that she had a lipase level of over [address] scanning of the abdomen revealed inflammatory changes the pancreas without evidence for pseudocyst. She's had previous cholecystectomy and no biliary tract pathology was noted on CT scanning. She was admitted for treatment of acute pancreatitis. She reports 1 another bout of pancreatitis likely her first several years ago. This occurred several years after cholecystectomy. She denied any pancreatitis problems the time of her acute cholecystectomy. There've been no medication changes and she reports no past history of heart disease. She did not undergo any other workup other than her initial CT scan that she recalls after her first bout of pancreatitis. She denies night sweats chills or fever. She is fearful of narcotics and reports that there is been pain relief thus far adequate with Tylenol and ibuprofen. Date Seen 08/06/18 Time Seen by a Provider: 08:30 Attending Physician Zay Bautista MD PCP Alverto Cohen DO Referring Physician Date of Admission Aug 05, 2018 at 15:00 Home Medications & Allergies Home Medications Reviewed patient Home Medication Reconciliation performed by pharmacy medication reconciliations armorer technician and/or nursing. Patients Allergies have been reviewed. Allergies Allergies Coded Allergies meperidine (Verified Allergy, Unknown, 07/25/06) Past Xauidip-Tenekq-Hbigpk Hx Past Med/Social Hx: Reviewed Nursing Past Med/Soc Hx, Reviewed and Corrections made Patient Social History Alcohol Use: Denies Use Recreational Drug Use: No Smoking Status: Never a Smoker Former Smoker, Quit: Feb 27, 1975 Type Used: Cigarettes 2nd Hand Smoke Exposure: No Physical Abuse Screen: No Sexual Abuse: No Recent Foreign Travel: No Contact w/other who traveled: No Recent Hopitalizations: No Recent Infectious Disease Expo: No Immunizations Up To Date Date of Pneumonia Vaccine: Aug 05, 2016 Seasonal Allergies Seasonal Allergies: Yes Past Medical History Surgeries: Gallbladder, Hysterectomy Currently Using CPAP: No Currently Using BIPAP: No Cardiac: Hypertension Sexually Transmitted Disease: No Hysterectomy Gastrointestinal: Gastroesophageal Reflux, Pancreatitis, Chronic Diarrhea, Gall Bladder Disease, Irritable Bowel Endocrine: Diabetes, Non-Insulin dep Cancer: Skin Did You Recieve Any Treatments: No Skin/Integumentary: Psoriasis History of Blood Disorders: No Family History Reviewed Nursing Family Hx Abdominal aortic aneurysm 19 MOTHER Alcoholism 19 FATHER Alzheimer's disease 19 MOTHER Arthritis 19 MOTHER Cataracts 19 MOTHER Dementia 19 MOTHER Myocardial infarction 19 FATHER Neoplasm 19 FATHER Respiratory disorder 19 MOTHER Thyroid disease 19 MOTHER No Pertinent Family Hx Review of Systems Constitutional: no symptoms reported, see HPI Respiratory: No cough, No dyspnea on exertion, No hemoptysis, No orthopnea, No phlegm, No short of breath Gastrointestinal: No RUQ, No LUQ, No RLQ, No LLQ, No abdominal pain, No constipation, No diarrhea, No dysphagia, No hematemesis; heartburn; No jaundice , No loss of appetite, No melena, No nausea, No vomiting; other (No significant abdominal pain is noted she reports lower precordial discomfort radiating through to her back worse in the right side. She notes significant associated belching that she was not doing during the interview.) Physical Exam Physical Exam Vital Signs Vital Signs - First Documented 08/05/18 08/05/18 08/05/18 12:29 15:25 15:40 Temp 98.2 Pulse 84 Resp 20 B/P (MAP) 185/89 (121) Pulse Ox 98 O2 Delivery Room Air Capillary Refill : Less Than 3 Seconds Height, Weight, BMI Height: 5'0.00" Weight: 1lbs. 0.0oz. 0.992836qm; 0.2 BMI Method:Stated General Appearance: Anxious, Obese HEENT: PERRL/EOMI, TMs Normal, Normal ENT Inspection, Pharynx Normal Neck: Full Range of Motion, Normal Inspection, Non Tender, Supple, Carotid Bruit Respiratory: Chest Non Tender, Lungs Clear, Normal Breath Sounds, No Accessory Muscle Use, No Respiratory Distress Cardiovascular: Regular Rate, Rhythm, No Edema, No Gallop, No JVD, No Murmur, Normal Peripheral Pulses Gastrointestinal: No Organomegaly, No Pulsatile Mass, Non Tender, Soft, Other ( Some bowel sounds present but hypoactive) Extremity: Normal Capillary Refill, Normal Inspection, Normal Range of Motion, Non Tender, No Calf Tenderness, No Pedal Edema Neurologic/Psychiatric: Alert, Oriented x3 Skin: Normal Color, Warm/Dry Results Results/Procedures Labs Laboratory Tests 08/05/18 12:24 08/06/18 05:27 Patient resulted labs reviewed. Imaging: Reviewed Imaging Films Imaging ADMIT DATE: 08/05/18/ER Signed Date of Exam: 08/05/18 CT ABDOMEN/PELVIS W PROCEDURE: CT abdomen and pelvis with contrast. TECHNIQUE: Multiple contiguous axial images were obtained through the abdomen and pelvis after administration of intravenous contrast. INDICATION: Right-sided chest pain. Nausea. History of pancreatitis. Comparison made with prior examination from 08/24/13. FINDINGS: The lung bases demonstrate no focal infiltrate or effusion. The liver demonstrates hepatic steatosis without evidence of intrahepatic abnormality. The patient is status post cholecystectomy. There is no abnormal biliary dilatation. There is some abnormal induration demonstrated within the fat along the pancreatic body suggestive of a pancreatitis. There is a normal appearance of the spleen. The adrenal glands appear normal. The kidneys appear nonobstructed. Small and large bowel appear normal in caliber without evidence of obstruction. There is no focal abnormal bowel thickening. There is uncomplicated sigmoid diverticulosis. There is moderate stool within the colon. The patient is status post prior hysterectomy. There is no pelvic mass. There is no evidence of free air, free fluid or abscess. There are no pathologically enlarged lymph nodes. There are mild atherosclerotic calcifications within the aorta. There is multilevel degenerative disc disease and facet arthropathy but no acute or suspicious osseous abnormality. Impression: 1. Abnormal induration and fat stranding along the body of the pancreas suggested for recurrent pancreatitis. 2. Previous cholecystectomy without biliary dilatation. 3. Hepatic steatosis. 4. Small hiatal hernia. 5. Uncomplicated diverticulosis. 6. Previous hysterectomy 7. No free air, free fluid, abscess or pathologic adenopathy Assessment/Plan Admission Diagnosis A/P 1. Acute pancreatitis her reported second episode. Her lipase was down from mid 6000 range to 600 and liver function tests elevation only mild ALP elevation has resolved. We'll advanced from clear liquid diet and monitor today with hopeful discharge tomorrow. We did discuss the need for further workup likely starting with endoscopic ultrasound to be done later as an outpatient with likely GI referral after follow-up with Dr. Cohen her primary care provider. 2. Type II diabetes mellitus blood sugars have been good on restricted diet off metformin due to yesterday's CT scan will resume on discharge in addition to her SGLT-2 inhibitor. 3. Hypertension: There is a very small chance that hydrochlorothiazide could be contributing to pancreatitis for this reason we'll just resume losartan. Admission Status: Inpatient Order (span 2 midnights) Reason for Inpatient Admission: As per admission diagnosis Clinical Quality Measures AMI/AHF: ASA po Prior to arrival: No DVT/VTE Risk/Contraindication: Risk Factor Score Per Nursin RFS Level Per Nursing on Admit: 3=High Copy Copies To 1: ALVERTO COHEN MARK D MD Aug 06, 2018 11:12
[2018-08-06 12:00] VITALS: BP 166/71
[2018-08-06] MEDS ORDERED: FLU QUADRIvalent (5+ YOA) 2018-2019 (AFLURIA) 0.5 ML IM ONE (14:18)
[2018-08-06 16:02] VITALS: BP 163/70
[2018-08-06 20:01] VITALS: BP 158/98
[2018-08-06] MEDS: LORazepam 1 MG (ATIVAN) TAB PO SCH (20:18)
[2018-08-07 00:10] VITALS: BP 139/63
[2018-08-07 04:00] VITALS: BP 163/72
[2018-08-07] MEDS: inSUlin ASPART (NovoLOG) 1 UNIT/0.01 ML (CHARGE PER UNIT) SC SCH ×2 (05:36→11:30)
[2018-08-07 08:00] VITALS: BP 164/70
[2018-08-07] MEDS: LOSARTAN 100 MG (COZAAR) TABLET PO SCH (08:10)
[2018-08-07] MEDS ORDERED: AMLO5TAB4 PO (11:34)
--- NOTE | 2018-08-07 11:35 | Discharge Summary-Hospitalist ---
Diagnosis/Chief Complaint Date of Admission Aug 05, 2018 at 15:00 Date of Discharge Discharge Date: Aug 07, 2018 Admission Diagnosis A/P 1. Acute pancreatitis her reported second episode. Her lipase was down from mid 6000 range to 600 and liver function tests elevation only mild ALP elevation has resolved. We'll advanced from clear liquid diet and monitor today with hopeful discharge tomorrow. We did discuss the need for further workup likely starting with endoscopic ultrasound to be done later as an outpatient with likely GI referral after follow-up with Dr. Whitehead her primary care provider. 2. Type II diabetes mellitus blood sugars have been good on restricted diet off metformin due to yesterday's CT scan will resume on discharge in addition to her SGLT-2 inhibitor. 3. Hypertension: There is a very small chance that hydrochlorothiazide could be contributing to pancreatitis for this reason we'll just resume losartan. Discharge Diagnosis (1) Acute pancreatitis Status: Acute (2) Hypertension Status: Chronic (3) Diabetes Status: Chronic Discharge Summary Discharge Physical Exam Allergies: Coded Allergies: meperidine (Verified Allergy, Unknown, 07/25/06) Vitals & I&Os Vital Signs Date Time Temp Pulse Resp B/P (MAP) Pulse Ox O2 Delivery O2 Flow Rate FiO2 08/07/18 08:00 98.1 85 16 164/70 (101) 95 Room Air General Appearance: No Apparent Distress, WD/WN Respiratory: Chest Non Tender, Lungs Clear, Normal Breath Sounds, No Accessory Muscle Use, No Respiratory Distress Cardiovascular: Regular Rate, Rhythm, No Edema, No Gallop, No JVD, No Murmur, Normal Peripheral Pulses Neurologic/Psychiatric: Alert, Oriented x3, No Motor/Sensory Deficits, Normal Mood/Affect Hospital Course Hospital course: This is a 72-year-old white female with a prior history of pancreatitis that was admitted for abdominal pain and had elevation of lipase so she was placed on IV fluids and by mouth lipase rapidly decreased to the point that she was ready to go home with close follow-up. We did hold most of her home medication including anything had any factor in causing recurrent pancreatitis. Added Norvasc for elevated blood pressure and held losartan. Labs (last 24 hrs) Laboratory Tests 08/06/18 15:05: Glucometer 110 08/06/18 17:32: Glucometer 226H 08/06/18 20:00: Glucometer 173H 08/07/18 05:33: Glucometer 117H 08/07/18 11:15: Glucometer 116H Patient resulted labs reviewed. Pending Labs Laboratory Tests 08/07/18 05:33: Glucometer 117 08/07/18 11:15: Glucometer 116 Imaging: Reviewed Imaging Films Discussion & Recommendations Discharge Planning: <30 minutes discharge planning Discharge Home Medications: Active Scripts Active Norvasc (Amlodipine Besylate) 5 Mg Tablet 5 Mg PO DAILY Reported Estradiol Tablet (Estradiol) 0.5 Mg Tablet 0.5 Mg PO DAILY Ativan (Lorazepam) 1 Mg Tablet 2 Mg PO HS Instructions to patient/family Please see electronic discharge instructions given to patient. Clinical Quality Measures AMI/AHF: ASA po Prior to arrival: No DVT/VTE Risk/Contraindication: Risk Factor Score Per Nursin RFS Level Per Nursing on Admit: 3=High Problem Qualifiers (1) Acute pancreatitis: Pancreatitis type: unspecified pancreatitis type Acute pancreatitis complication: unspecified Qualified Codes: K85.90 - Acute pancreatitis without necrosis or infection, unspecified (2) Hypertension: Hypertension type: essential hypertension Qualified Codes: I10 - Essential ( primary) hypertension (3) Diabetes: Diabetes mellitus type: type 2 Diabetes mellitus skilled nursing insulin use: without termite treater helper use Diabetes mellitus complication status: without complication Qualified Codes: E11.9 - Type 2 diabetes mellitus without complications MARY LOU SNOW DO Aug 07, 2018 11:35
[2018-08-07 12:20] VITALS: BP 164/70
== END 2018-08-07 12:20 | disposition home or self-care (01) | DRG 440 ==
LOC: EDUNIT# 12:14 → ER 12:15 → 4TH 15:00
PROVIDERS: ADMIT Internal Medicine; ATTEND Internal Medicine
DX: K85.90 Acute pancreatitis without necrosis or infection, unspecified (principal); E11.9 Type 2 diabetes mellitus without complications; I10 Essential (primary) hypertension; K21.9 Gastro-esophageal reflux disease without esophagitis; Z87.891 Personal history of nicotine dependence
CPT/HCPCS: 36415; 71045; 74177; 80053; 80061; 82962; 83690; 83735; 83874; 84484; 85025; 85610; 85730; 90471; 90686; 93005; 93041; 96360; 96361

== ENCOUNTER → 2018-08-16 | Outpatient (CLI) | payer MEDICARE, OTHER ==
[~2018-08-16] MED LIST changes: +AMLO5TAB4 PO; +EMPA10TA PO; +ESTR0.5T PO; +LORA-405 PO; +LOSA1TAB23 PO; +METF-399 PO
--- NOTE | 2018-08-16 10:43 | Diagnostic Imaging Report ---
PROCEDURE: MR imaging cholangiography-pancreatography. TECHNIQUE: Multiplanar imaging of the abdomen was performed on a 1.5 Estrella magnet without contrast. 3D reconstructions were made for the MRCP INDICATION: Pancreatitis. There are no previous MRI abdomen exams available for comparison. The CT abdomen/pelvis exam of 08/05/2018 did suggest pancreatitis. On this exam however there is no abnormal signal about the pancreas to suggest edema/inflammation related to acute pancreatitis. The pancreas itself is not enlarged and the main pancreatic duct is normal in size. The common bile duct is not dilated and there is no defect within the duct to suggest choledocholithiasis. The biliary tree is not abnormally distended either. By history, the gallbladder is surgically absent. The CT exam did suggest that there was fatty metamorphosis of the liver. That finding is again evident, no different. There is no focal hepatic mass identified. The spleen, kidneys, adrenals, aorta and inferior vena cava show no sign of an acute abnormality. The hiatal hernia noted on the previous exam is again evident and no different. There is no mass or free fluid collection evident. The lung bases where visualized are clear. There is no abnormal signal arising from the osseous structures to suggest bone edema or fracture. IMPRESSION: 1. There is no abnormal signal about the pancreas to suggest pancreatitis. The pancreas is not enlarged and the main pancreatic duct is within normal limits. 2. The gallbladder is surgically absent. The common duct is not dilated. There is no defect within the common bile duct to indicate choledocholithiasis. 3. The appearance of the liver does suggest fatty metamorphosis. Dictated by: Dictated on workstation # [id number]
== END ==
LOC: RAD 08:41
PROVIDERS: ATTEND Internal Medicine
DX: K85.90 Acute pancreatitis without necrosis or infection, unspecified (principal); Z90.49 Acquired absence of other specified parts of digestive tract
CPT/HCPCS: 74181

== ENCOUNTER 2022-03-15 13:31 | Emergency (ER) | payer MEDICARE, MEDICAID ==
[~2022-03-15] VITALS: Ht 154.9 cm; Wt 82.5 kg
[~2022-03-15 13:31] MED LIST changes: -MECL-106 PO; +MECL-149 PO
--- NOTE | 2022-03-15 13:51 | ED Cardiac General ---
History of Present Illness General Chief Complaint: Cardiac/General Problems Stated Complaint: HIGH BP 200/80 Source: patient Exam Limitations: no limitations History of Present Illness Date Seen by Provider: Mar 15, 2022 Time Seen by Provider: 13:49 Initial Comments Patient is a 76-year-old female who presents the ED with elevated blood pressure. History of hypertension currently on blood pressure medication that she cannot recall. She got a new blood pressure cuff on Tuesday took her blood pressure that read as high as 190/99. Continue to read high over the weekend and that her primary care physician visit today with Dr. Whitehead. On arrival to the . She has a of headaches and sinus pressure secondary to sinus congestion. She denies of any specific chest pain, shortness of breath, headache, dizziness, visual changes, unilateral muscle weakness or sensory changes. No history of heart disease, stroke. She is currently asymptomatic but unsure why her blood pressure is reading high. No change in medication. Allergies and Home Medications Allergies Coded Allergies: meperidine (Verified Allergy, Unknown, 07/25/06) Patient Home Medication List Home Medication List Reviewed: Yes Amlodipine Besylate (Norvasc) 5 Mg Tablet, 5 MG PO DAILY Prescribed by: MARY LOU SNOW on 08/07/18 1134 Amlodipine Besylate (Amlodipine Besylate) 5 Mg Tablet, 5 MG PO DAILY Prescribed by: MATRIN GIFFORD on 03/15/22 1525 Estradiol (Estradiol Tablet) 0.5 Mg Tablet, 0.5 MG PO DAILY, (Reported) Entered as Reported by: KRAIG HOLM on 08/05/18 1643 Lorazepam (Ativan) 1 Mg Tablet, 2 MG PO HS, (Reported) Entered as Reported by: KRAIG HOLM on 08/05/18 1631 Review of Systems Review of Systems Constitutional: No chills, No diaphoresis, No malaise, No weakness EENTM: No Blurred Vision, No Double Vision, No Eye Pain Respiratory: Denies Cough, Denies Orthopnea Cardiovascular: Denies Chest Pain, Denies Edema Gastrointestinal: Denies Abdominal Pain, Denies Diarrhea, Denies Difficulty Swallowing, Denies Nausea, Denies Vomiting Genitourinary: Denies Burning, Denies Discharge Musculoskeletal: No back pain, No joint pain All Other Systems Reviewed Negative Unless Noted: Yes Past Ozmrgzb-Bdnqug-Ttgqdv Hx Seasonal Allergies Seasonal Allergies: Yes Past Medical History Surgeries: Yes (CHOELECYSTECTOMY, HYSTERECTOMY) Gallbladder, Hysterectomy Respiratory: No Currently Using CPAP: No Currently Using BIPAP: No Cardiac: Yes Hypertension 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 Sexually Transmitted Disease: No Genitourinary: No Gastrointestinal: Yes Gastroesophageal Reflux, Pancreatitis, Chronic Diarrhea, Gall Bladder Disease, Irritable Bowel Musculoskeletal: No Endocrine: Yes Diabetes, Non-Insulin dep HEENT: No Cancer: Yes Skin Did You Recieve Any Treatments: No Psychosocial: No Integumentary: Yes (scalp) Psoriasis Blood Disorders: No Family Medical History Abdominal aortic aneurysm 19 MOTHER Alcoholism 19 FATHER Alzheimer's disease 19 MOTHER Arthritis 19 MOTHER Cataracts 19 MOTHER Dementia 19 MOTHER Myocardial infarction 19 FATHER Neoplasm 19 FATHER Respiratory disorder 19 MOTHER Thyroid disease 19 MOTHER No Pertinent Family Hx Physical Exam Vital Signs Vital Signs - First Documented 03/15/22 13:41 Temp 36.5 Pulse 100 Resp 12 B/P (MAP) 212/96 (134) Pulse Ox 97 Capillary Refill : Height, Weight, BMI Height: 5'0.00" Weight: 1lbs. 0.0oz. [id number]; 0.2 BMI Method:Stated General Appearance: No Apparent Distress, WD/WN HEENT: PERRL/EOMI, TMs Normal, Normal ENT Inspection, Pharynx Normal Neck: Full Range of Motion, Normal Inspection, Non Tender, Supple Respiratory: Chest Non Tender, Lungs Clear, Normal Breath Sounds, No Accessory Muscle Use, No Respiratory Distress Cardiovascular: Regular Rate, Rhythm, No Edema, No Gallop, No JVD, No Murmur Gastrointestinal: Normal Bowel Sounds, No Organomegaly, No Pulsatile Mass, Non Tender Rectal: Normal Exam, Normal Rectal Tone Extremity: Normal Capillary Refill, Normal Inspection, Normal Range of Motion, Non Tender, No Calf Tenderness Neurologic/Psychiatric: Alert, Oriented x3, No Motor/Sensory Deficits, Normal Mood/Affect, 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 Norm as Tested Skin: Normal Color, Warm/Dry Progress/Results/Core Measures Results/Orders Lab Results Laboratory Tests Test 03/15/22 13:53 Range/Units White Blood Count 6.5 4.3-11.0 10^3/uL Red Blood Count 4.61 3.80-5.11 10^6/uL Hemoglobin 13.4 11.5-16.0 g/dL Hematocrit 40 35-52 % Mean Corpuscular Volume 88 80-99 fL Mean Corpuscular Hemoglobin 29 25-34 pg Mean Corpuscular Hemoglobin Concent 33 32-36 g/dL Red Cell Distribution Width 12.9 10.0-14.5 % Platelet Count 231 130-400 10^3/uL Mean Platelet Volume 10.2 9.0-12.2 fL Immature Granulocyte % (Auto) 0 % Neutrophils (%) (Auto) 48 42-75 % Lymphocytes (%) (Auto) 40 12-44 % Monocytes (%) (Auto) 8 0-12 % Eosinophils (%) (Auto) 3 0-10 % Basophils (%) (Auto) 1 0-10 % Neutrophils # (Auto) 3.2 1.8-7.8 10^3/uL Lymphocytes # (Auto) 2.6 1.0-4.0 10^3/uL Monocytes # (Auto) 0.5 0.0-1.0 10^3/uL Eosinophils # (Auto) 0.2 0.0-0.3 10^3/uL Basophils # (Auto) 0.1 0.0-0.1 10^3/uL Immature Granulocyte # (Auto) 0.0 0.0-0.1 10^3/uL Sodium Level 140 135-145 MMOL/L Potassium Level 4.5 3.6-5.0 MMOL/L Chloride Level 105 98-107 MMOL/L Carbon Dioxide Level 20 L 21-32 MMOL/L Anion Gap 15 H 5-14 MMOL/L Blood Urea Nitrogen 19 H 7-18 MG/DL Creatinine 1.16 0.60-1.30 MG/DL Estimat Glomerular Filtration Rate 49 BUN/Creatinine Ratio 16 Glucose Level 109 H 70-105 MG/DL Calcium Level 9.5 8.5-10.1 MG/DL Corrected Calcium 9.3 8.5-10.1 MG/DL Total Bilirubin 0.4 0.1-1.0 MG/DL Aspartate Amino Transf (AST/SGOT) 26 5-34 U/L Alanine Aminotransferase (ALT/SGPT) 30 0-55 U/L Alkaline Phosphatase 51 40-136 U/L Troponin I < 0.028 <0.028 NG/ML B-Type Natriuretic Peptide 18.6 <100.0 PG/ML Total Protein 7.1 6.4-8.2 GM/DL Albumin 4.2 3.2-4.5 GM/DL My Orders Orders - SARMAD MELLO Cbc With Automated Diff (03/15/22 13:48) Bnp [place] (03/15/22 13:48) Comprehensive Metabolic Panel (03/15/22 13:48) Ekg Tracing (03/15/22 13:48) Iv/Invasive Line Insertion .IV start (03/15/22 13:48) Troponin I Girma (03/15/22 13:48) Hydralazine Injection (Apresoline Inject (03/15/22 14:00) Labetalol Injection (Normodyne Injection (03/15/22 15:15) Medications Given in ED Current Medications Medications Dose Ordered Sig/Yusuf Route Start Time Stop Time Status Last Admin Dose Admin Hydralazine HCl 10 mg ONCE ONCE IV 03/15/22 14:00 03/15/22 14:01 DC 03/15/22 14:45 10 MG Vital Signs/I&O 03/15/22 13:41 Temp 36.5 Pulse 100 Resp 12 B/P (MAP) 212/96 (134) Pulse Ox 97 Departure Communication (PCP) Patient presents ED with elevated blood pressure. She is currently asymptomatic. Lab work was otherwise unremarkable. No evidence of endorgan damage. No headache, dizziness, visual changes or focal neural deficits requiring CT scan of the head. She was given hydralazine 10 mg with improvement of her blood pressure to 159/74 after being 212/96. She is currently on losartan/hydrochlorothiazide 100-25mg. Discussed starting blood pressure medication amlodipine 5 mg. She states she has a history of high blood pressure that has been as high as 1 80-190 at previous doctor visits. EKG did note some LVH without evidence of arrhythmia. Likely has been more chronic. If any worsening symptoms return back to ED for further evaluation. She has scheduled follow-up on Tuesday with her primary care physician. Impression Primary Impression: Elevated blood pressure reading Disposition: HOME, SELF-CARE Condition: Stable Departure-Patient Inst. Decision time for Depature: 15:24 Referrals: ALVERTO WHITEHEAD DO (PCP/Family) Primary Care Physician Patient Instructions: High Blood Pressure in Adults Scripts Amlodipine Besylate (Amlodipine Besylate) 5 Mg Tablet 5 MG PO DAILY, #20 TAB Prov: SARMAD MELLO 03/15/22 SARMAD MELLO Mar 15, 2022 13:51
[2022-03-15] MEDS ORDERED: hydrALAZINE (APESOLINE) 20 MG/ML VIAL IV ONE (14:00)
[2022-03-15 14:02] LABS: BASOPHILS # (AUTO) 0.1 10^3/uL (0.0-0.1); BASOPHILS % (AUTO) 1 % (0-10); EOSINOPHILS # (AUTO) 0.2 10^3/uL (0.0-0.3); EOSINOPHILS % (AUTO) 3 % (0-10); HEMATOCRIT 40 % (35-52); HEMOGLOBIN 13.4 g/dL (11.5-16.0); LYMPHOCYTES # (AUTO) 2.6 10^3/uL (1.0-4.0); LYMPHOCYTES % (AUTO) 40 % (12-44); MEAN CORPUSCULAR HEMOGLOBIN 29 pg (25-34); MEAN CORPUSCULAR HGB CONC 33 g/dL (32-36); MEAN CORPUSCULAR VOLUME 88 fL (80-99); MEAN PLATELET VOLUME 10.2 fL (9.0-12.2); MONOCYTES # (AUTO) 0.5 10^3/uL (0.0-1.0); MONOCYTES % (AUTO) 8 % (0-12); NEUTROPHILS # (AUTO) 3.2 10^3/uL (1.8-7.8); NEUTROPHILS % (AUTO) 48 % (42-75); PLATELET COUNT 231 10^3/uL (130-400); WHITE BLOOD COUNT 6.5 10^3/uL (4.3-11.0)
[2022-03-15 14:22] LABS: ALANINE AMINOTRANSFERASE 30 U/L (0-55); ALBUMIN 4.2 GM/DL (3.2-4.5); ALKALINE PHOSPHATASE 51 U/L (40-136); BILIRUBIN,TOTAL 0.4 MG/DL (0.1-1.0); BUN/CREATININE RATIO 16; CALCIUM 9.5 MG/DL (8.5-10.1); CARBON DIOXIDE 20 MMOL/L (21-32); CHLORIDE 105 MMOL/L (98-107); CREATININE SERUM 1.16 MG/DL (0.60-1.30); GFR ESTIMATED 49; GLUCOSE 109 MG/DL (70-105); POTASSIUM 4.5 MMOL/L (3.6-5.0); SODIUM 140 MMOL/L (135-145); TOTAL PROTEIN 7.1 GM/DL (6.4-8.2)
[2022-03-15] MEDS ORDERED: LABETALOL HCL 20 MG/4 ML VIAL IV ONE (15:15)
[2022-03-15] MEDS ORDERED: AMLO-250 PO (15:25)
[2022-03-15 15:40] VITALS: BP 175/78
== END 2022-03-15 15:42 | disposition home or self-care (01) ==
LOC: EDUNIT# 13:31 → ER 13:34
DX: I10 Essential (primary) hypertension (principal); Z79.899 Other long term (current) drug therapy
CPT/HCPCS: 36415; 80053; 83880; 84484; 85025; 93005

== ENCOUNTER → 2022-05-14 | Outpatient (CLI) | payer MEDICARE, MEDICAID ==
[~2022-05-14] MED LIST changes: +AMLO-250 PO; +CATHETER FLUSH 10 ML SYR IVP PRN; +REGADENOSON 0.4 MG/5 ML SYR (LEXISCAN) IV ONE
[2022-05-14 08:17] VITALS: BP 130/89
--- NOTE | 2022-05-14 10:15 | Cardiology Stress Test Report ---
Stress Test Report Date of Procedure/Referring: Date of Procedure: May 14, 2022 PCP Alverto Whitehead DO Admitting Physician Admitting Physician: Attending Physician: Alverto Whitehead DO Indications: Fatigue Baseline Vital Signs Vital Signs Date Time Temp Pulse Resp B/P (MAP) Pulse Ox O2 Delivery O2 Flow Rate FiO2 05/14/22 08:17 107 16 130/89 (103) 100 Summary: Patient receive a resting and stress dose of Myoview, images were acquired and reviewed in the short axis view, horizontal long axis view and vertical long axis view. TID: 0.99 SSS: 8 SDS: 6 EF: 74 1. Breast attenuation with decreased uptake involving the anterior septum with mild reversibility, suggestive of mild ischemia in the anteroseptal segment 2. Normal left ventricular size with normal contractility, ejection fraction 74% Copy Copies To 1: ALVERTO WHITEHEAD BASHAR J MD May 14, 2022 10:15
== END ==
LOC: CARD 07:00
PROVIDERS: ATTEND Internal Medicine
DX: G47.33 Obstructive sleep apnea (adult) (pediatric) (principal); F41.8 Other specified anxiety disorders; I10 Essential (primary) hypertension; E11.9 Type 2 diabetes mellitus without complications; J01.01 Acute recurrent maxillary sinusitis; G47.01 Insomnia due to medical condition
CPT/HCPCS: 78452; 93017; A9502

== ENCOUNTER 2022-08-25 12:37 | Emergency (ER) | payer MEDICARE, MEDICAID ==
[~2022-08-25] VITALS: Ht 154.9 cm; Wt 80.2 kg
[~2022-08-25 12:37] MED LIST changes: -CATHETER FLUSH 10 ML SYR IVP PRN; -REGADENOSON 0.4 MG/5 ML SYR (LEXISCAN) IV ONE
[2022-08-25] MEDS ORDERED: ONDANSETRON 4 MG (ZOFRAN) ORAL DISSOLVE TAB PO STA (12:47)
--- NOTE | 2022-08-25 12:54 | ED General ---
General Chief Complaint: Dizziness/Syncope Stated Complaint: VERTIGO Nursing Triage Note: PT TO RM 5 BY EMS WITH CC OF DIZZINESS AND NAUSEA. EMS REPORTS FOUND PT SITTING NEXT TO THE BED. PT DENEIS HITTING HER HEAD AND PAIN. PT STATES HAS EXPERIENCED THIS BEFORE. DENIES VISUAL CHANGES AND VOMITING. PT A&OX4 Source of Information: Patient Exam Limitations: No Limitations History of Present Illness Date Seen by Provider: Aug 25, 2022 Time Seen by Provider: 12:43 Initial Comments 76-year-old female presents to the emergency department today for dizziness. She describes a room spinning sensation when she rolled to the side in her bed this morning. She tried get out of bed and dizzy causing her to slide against the bed into the ground. She states she crawled to the bathroom and got a cane and tried to stand up and fell down once again. She did not hit her head or lose consciousness. She has no injuries from the fall. She describes her sy mptoms as room spinning and associated with significant nausea. It does seem to be worse with standing or looking to the right side. She has had 1 similar episode previously and it was ultimately chalked up to peripheral vertigo. He does state that she has chronic sinus issues and thinks they may be a little worse than usual. She denies any fevers or chills. She has not taken any of her medicines today and states she knows her blood pressure is high. She does endorse a headache which she thinks is related to this. She has nausea without any vomiting. No changes in her vision blurred or double vision. No upper or lower extremity weakness numbness or tingling. No recent cough abdominal pain or changes in bowel or bladder habits. No chest pain or shortness of breath Allergies and Home Medications Allergies Coded Allergies: meperidine (Verified Allergy, Unknown, 07/25/06) Patient Home Medication List Home Medication List Reviewed: Yes Amlodipine Besylate (Norvasc) 5 Mg Tablet, 5 MG PO DAILY Prescribed by: MARY LOU SNOW on 08/07/18 1134 Amlodipine Besylate (Amlodipine Besylate) 5 Mg Tablet, 5 MG PO DAILY Prescribed by: MARTIN GIFFORD on 03/15/22 1525 Estradiol (Estradiol Tablet) 0.5 Mg Tablet, 0.5 MG PO DAILY, (Reported) Entered as Reported by: KRAIG HOLM on 08/05/18 1643 Lorazepam (Ativan) 1 Mg Tablet, 2 MG PO HS, (Reported) Entered as Reported by: KRAIG HOLM on 08/05/18 1631 Review of Systems Review of Systems Constitutional: dizziness EENTM: no symptoms reported Respiratory: no symptoms reported Cardiovascular: no symptoms reported Gastrointestinal: nausea Genitourinary: no symptoms reported Musculoskeletal: no symptoms reported Skin: no symptoms reported Psychiatric/Neurological: No Symptoms Reported Hematologic/Lymphatic: No Symptoms Reported Immunological/Allergic: no symptoms reported Past Hbysmwj-Fpzzgd-Ouglja Hx Patient Social History Tobacco Use?: No Substance use?: No Alcohol Use?: No Pt feels they are or have been: No Immunizations Up To Date Influenza Vaccine Up-to-Date: Yes; Up-to-Date Seasonal Allergies Seasonal Allergies: Yes Past Medical History Surgery/Hospitalization HX: HTN, DM, GALBLADDER Surgeries: Yes (CHOELECYSTECTOMY, HYSTERECTOMY) Gallbladder, Hysterectomy Respiratory: No Currently Using CPAP: No Currently Using BIPAP: No Cardiac: Yes Hypertension 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 Sexually Transmitted Disease: No Genitourinary: No Gastrointestinal: Yes Gastroesophageal Reflux, Pancreatitis, Chronic Diarrhea, Gall Bladder Disease, Irritable Bowel Musculoskeletal: No Endocrine: Yes Diabetes, Non-Insulin dep HEENT: No Cancer: Yes Skin Did You Recieve Any Treatments: No Psychosocial: No Integumentary: Yes (scalp) Psoriasis Blood Disorders: No Family Medical History Reviewed Nursing Family Hx Abdominal aortic aneurysm 19 MOTHER Alcoholism 19 FATHER Alzheimer's disease 19 MOTHER Arthritis 19 MOTHER Cataracts 19 MOTHER Dementia 19 MOTHER Myocardial infarction 19 FATHER Neoplasm 19 FATHER Respiratory disorder 19 MOTHER Thyroid disease 19 MOTHER No Pertinent Family Hx Physical Exam Vital Signs Vital Signs - First Documented 08/25/22 12:40 Temp 35.6 Pulse 80 Resp 16 B/P (MAP) 237/92 (140) Pulse Ox 99 O2 Delivery Room Air Capillary Refill : Less Than 3 Seconds Height, Weight, BMI Height: 5'0.00" Weight: 1lbs. 0.0oz. 0.275151vn; 33.00 BMI Method:Stated General Appearance: No Apparent Distress, WD/WN HEENT: PERRL/EOMI, TMs Normal, Normal ENT Inspection, Pharynx Normal, Other (Fatigable nystagmus to the right side) Neck: Normal Inspection, Non Tender, Supple Respiratory: Chest Non Tender, Lungs Clear, Normal Breath Sounds, No Accessory Muscle Use, No Respiratory Distress Cardiovascular: Regular Rate, Rhythm, No Murmur, Normal Peripheral Pulses Gastrointestinal: Normal Bowel Sounds, No Organomegaly Extremity: Normal Capillary Refill, Normal Inspection, Normal Range of Motion, Non Tender, No Calf Tenderness Neurologic/Psychiatric: Alert, Oriented x3, No Motor/Sensory Deficits, Normal Mood/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, 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 Norm as Tested Skin: Normal Color, Warm/Dry Lymphatic: No Adenopathy Progress/Results/Core Measures Suspected Sepsis SIRS Temperature: Pulse: 80 Respiratory Rate: 16 Laboratory Tests 08/25/22 13:15: White Blood Count 6.0 Blood Pressure 237 /92 Mean: 140 Laboratory Tests 08/25/22 13:15: Creatinine 1.10, Platelet Count 236 Results/Orders Lab Results Laboratory Tests Test 08/25/22 13:15 Range/Units White Blood Count 6.0 4.3-11.0 10^3/uL Red Blood Count 4.36 3.80-5.11 10^6/uL Hemoglobin 12.2 11.5-16.0 g/dL Hematocrit 38 35-52 % Mean Corpuscular Volume 87 80-99 fL Mean Corpuscular Hemoglobin 28 25-34 pg Mean Corpuscular Hemoglobin Concent 32 32-36 g/dL Red Cell Distribution Width 12.8 10.0-14.5 % Platelet Count 236 130-400 10^3/uL Mean Platelet Volume 10.0 9.0-12.2 fL Immature Granulocyte % (Auto) 0 % Neutrophils (%) (Auto) 54 42-75 % Lymphocytes (%) (Auto) 37 12-44 % Monocytes (%) (Auto) 7 0-12 % Eosinophils (%) (Auto) 1 0-10 % Basophils (%) (Auto) 1 0-10 % Neutrophils # (Auto) 3.3 1.8-7.8 10^3/uL Lymphocytes # (Auto) 2.2 1.0-4.0 10^3/uL Monocytes # (Auto) 0.4 0.0-1.0 10^3/uL Eosinophils # (Auto) 0.1 0.0-0.3 10^3/uL Basophils # (Auto) 0.0 0.0-0.1 10^3/uL Immature Granulocyte # (Auto) 0.0 0.0-0.1 10^3/uL Sodium Level 137 135-145 MMOL/L Potassium Level 4.5 3.6-5.0 MMOL/L Chloride Level 105 98-107 MMOL/L Carbon Dioxide Level 22 21-32 MMOL/L Anion Gap 10 5-14 MMOL/L Blood Urea Nitrogen 20 H 7-18 MG/DL Creatinine 1.10 0.60-1.30 MG/DL Estimat Glomerular Filtration Rate 52 BUN/Creatinine Ratio 18 Glucose Level 117 H 70-105 MG/DL Calcium Level 9.5 8.5-10.1 MG/DL My Orders Orders - JOSE ALBERTO MARTIN DO Basic Metabolic Panel (08/25/22 12:47) Ekg Tracing (08/25/22 12:47) Ct Head Wo (08/25/22 12:47) Cbc With Automated Diff (08/25/22 12:47) Diazepam Tablet (Valium Tablet) (08/25/22 13:00) Ondansetron Oral Dissolve Tab (Zofran (08/25/22 12:47) Meclizine Tablet (Antivert Tablet) (08/25/22 13:00) Medications Given in ED Current Medications Medications Dose Ordered Sig/Yusuf Route Start Time Stop Time Status Last Admin Dose Admin Meclizine HCl 25 mg ONCE ONCE PO 08/25/22 13:00 08/25/22 13:01 DC 08/25/22 13:01 25 MG Vital Signs/I&O 08/25/22 12:40 Temp 35.6 Pulse 80 Resp 16 B/P (MAP) 237/92 (140) Pulse Ox 99 O2 Delivery Room Air Capillary Refill : Less Than 3 Seconds Blood Pressure Mean: 140 ECG Comment Sinus rhythm with a rate of 68 bpm. Normal intervals. Left axis deviation. No ST or T wave abnormalities. No ectopy. Departure Communication (Admissions) Patient has significant vertiginous symptoms. They do appear to be peripheral on exam however CT scan undertaken to rule out hemorrhage or subacute stroke. This is negative. Labs are undertaken to rule out hypo or hypernatremia, hypo or hyperkalemia or other chronic causes for vertigo. CBC to rule out anemia. These results are normal. This is very likely peripheral., Especially with fatigable nystagmus to the right and symptoms worsening when she looks to the right. She is feeling somewhat better with meclizine. Advised to use Flonase twice daily and follow-up with her primary doctor. She will be given meclizine on discharge. Impression Primary Impression: Peripheral vertigo Qualified Codes: H81.391 - Other peripheral vertigo, right ear Disposition: 01 HOME, SELF-CARE Condition: Stable Departure-Patient Inst. Referrals: ALVERTO COHEN DO (PCP/Family) Primary Care Physician Patient Instructions: Vertigo (a Type of Dizziness) (DC) Add. Discharge Instructions: Use meclizine as needed for dizziness. This may make you drowsy so do not drive or make important decisions while taking it. You should also refrain from driving while you are experiencing vertigo symptoms. Please follow-up with your primary doctor should your symptoms persist for more than the next 5 to 7 days. Return to the emergency department for any severe concerns. Return immediately if you develop any weakness of your arms or legs, double vision or if your symptoms change in any way concerning to you. All discharge instructions reviewed with patient and/or family. Voiced understanding. Scripts Meclizine HCl (Meclizine HCl) 12.5 Mg Tablet 12.5 MG PO TID for Dizziness for 7 Days, #21 TAB Prov: JOSE ALBERTO MARTIN DO 08/25/22 JOSE ALBERTO MARTIN DO Aug 25, 2022 12:54
[2022-08-25] MEDS ORDERED: MECLIZINE 25 MG (ANTIVERT) TAB PO ONE (13:00)
[2022-08-25 13:24] LABS: BASOPHILS % (AUTO) 1 % (0-10); EOSINOPHILS # (AUTO) 0.1 10^3/uL (0.0-0.3); EOSINOPHILS % (AUTO) 1 % (0-10); HEMATOCRIT 38 % (35-52); HEMOGLOBIN 12.2 g/dL (11.5-16.0); LYMPHOCYTES # (AUTO) 2.2 10^3/uL (1.0-4.0); LYMPHOCYTES % (AUTO) 37 % (12-44); MEAN CORPUSCULAR HEMOGLOBIN 28 pg (25-34); MEAN CORPUSCULAR HGB CONC 32 g/dL (32-36); MEAN CORPUSCULAR VOLUME 87 fL (80-99); MONOCYTES # (AUTO) 0.4 10^3/uL (0.0-1.0); MONOCYTES % (AUTO) 7 % (0-12); NEUTROPHILS # (AUTO) 3.3 10^3/uL (1.8-7.8); NEUTROPHILS % (AUTO) 54 % (42-75); PLATELET COUNT 236 10^3/uL (130-400)
[2022-08-25 13:36] LABS: POTASSIUM 4.5 MMOL/L (3.6-5.0)
[2022-08-25 13:37] LABS: CALCIUM 9.5 MG/DL (8.5-10.1)
--- NOTE | 2022-08-25 13:40 | Diagnostic Imaging Report ---
PROCEDURE: CT head without contrast. TECHNIQUE: Multiple contiguous axial images were obtained through the brain without the use of intravenous contrast. Auto Exposure Controls were utilized during the CT exam to meet ALARA standards for radiation dose reduction. INDICATION: Dizziness and vertigo. COMPARISON: No priors. FINDINGS: There is mild atrophy and ventriculomegaly, likely predominantly central atrophy on a senescent basis. No periventricular edema. No mass or mass effect. The basilar cisterns are patent. No sulcal effacement. There is no hemorrhage. No findings to suggest an elevation of the intracranial pressures. No mass or mass effect. The orbits, sinuses, and calvarium are nonacute. There is no mastoid effusion. The middle ear cavities are unremarkable. IMPRESSION: Some mild atrophy and ventriculomegaly, but no hemorrhage, edema, or acute appearing abnormalities. Dictated by: Dictated on workstation # [id number]
[2022-08-25 13:42] LABS: CREATININE SERUM 1.1 MG/DL (0.60-1.30)
[2022-08-25] MEDS ORDERED: MECL-215 PO (13:46)
[2022-08-25] MEDS ORDERED: ONDA8TAB13 SL (13:53)
[2022-08-25 13:56] VITALS: BP 187/77
== END 2022-08-25 14:03 | disposition home or self-care (01) ==
LOC: EDUNIT# 12:37 → ER 12:38
DX: H81.391 Other peripheral vertigo, right ear (principal); I10 Essential (primary) hypertension; T46.5X6A Underdosing of other antihypertensive drugs, initial encounter; Z91.138 Patient's unintentional underdosing of medication regimen for other reason
CPT/HCPCS: 36415; 70450; 80048; 85025; 93005

== ENCOUNTER → 2022-11-09 | Outpatient (CLI) | payer MEDICARE, MEDICAID ==
[~2022-11-09] MED LIST changes: +MECL-215 PO; +ONDA8TAB13 SL
--- NOTE | 2022-11-09 11:45 | Diagnostic Imaging Report ---
INDICATION: Postmenopausal state COMPARISON: None available FINDINGS: AP Spine L2-L4: [BMD (g/cm2): 1.343] [T-Score: 1.2] [Z-Score: 2.5] [BMD Previous: na] [BMD % Change: na] LT Hip Neck: [BMD (g/cm2): 0.934] [T-Score: -0.7] [Z-Score: 0.9] LT Hip Total: [BMD (g/cm2):1.180] [T-Score:1.4] [Z-Score: 2.8] [BMD Previous: na] [BMD % Change: na] RT Hip Neck: [BMD (g/cm2):0.944] [T-Score:-0.7] [Z-Score:1.0] RT Hip Total: [BMD (g/cm2):1.178] [T-score:1.3] [Z-Score:2.8] [BMD Previous:na] [BMD % Change:na] *Indicates significant change from prior examination based on 95% confidence level. World Health Organization criteria for BMD interpretation classify patients as Normal (T-score at or above -1.0), Osteopenic (T-score between -1.0 and -2.5) or Osteoporotic (T-score at or below -2.5). LIMITATIONS AND MODIFICATION: None. IMPRESSION: 1. Normal bone mineral density. 2. Baseline examination. 3. See below National Osteoporosis Foundation guidelines on when to potentially initiate pharmacologic therapy. Based on the National Osteoporosis Foundation Guidelines, pharmacologic treatment should be initiated in any of the following, unless clinical conditions suggest otherwise: * Any patient with prior fragility fracture of the hip or vertebrae. A spine fracture indicates 5X risk for subsequent spine fracture and 2X risk for subsequent hip fracture. * Osteoporosis (T-score <-2.5). * Postmenopausal women and men age 50 and older with low bone mass/osteopenia (T-score between -1.0 and -2.5) by DXA and 10-year major osteoporotic fracture greater than 20% or a 10-year probability of hip fracture greater than 3%. These fracture risks are supplied above in the FRAX score, if applicable. * Clinician judgement and/or patient preferences may indicate treatment for people with 10-year fracture probabilities above or below these levels. Dictated by: Dictated on workstation # [id number]
--- NOTE | 2022-11-09 15:50 | Diagnostic Imaging Report ---
INDICATION: Routine screening. Comparison is made with prior mammogram from 07/13/2016 and 11/29/2014. 2-D and 3-D bilateral screening mammography was performed with CAD. Both breasts are heterogeneously dense, limiting the sensitivity of mammography. The parenchymal pattern is stable. No dominant mass or malignant-appearing microcalcifications are seen. Benign calcifications in the left appears stable. Axillae are unremarkable. IMPRESSION: No mammographic features suspicious for malignancy are identified. ACR BI-RADS Category 2: Benign findings. Result letter will be mailed to the patient. Note: At least 10% of breast cancer is not imaged by mammography. BI-RADS Category 2 Dictated by: Dictated on workstation # [id number]
== END ==
LOC: RAD 10:23
PROVIDERS: ATTEND Internal Medicine
DX: Z12.31 Encounter for screening mammogram for malignant neoplasm of breast (principal); Z78.0 Asymptomatic menopausal state
CPT/HCPCS: 77063; 77067; 77080